=== PATIENT | female | born 1995 | race Two or more races ===

== ENCOUNTER 2020-09-28 20:25 | Emergency (ER) | payer MEDICAID, OTHER ==
[~2020-09-28] VITALS: Ht 162.6 cm; Wt 65.8 kg
[2020-09-28] MEDS ORDERED: ALUM & MAG HYDROX-SIMETH LIQ(MAALOX) 30 ML PO ONE (20:45)
[2020-09-28] MEDS ORDERED: ONDANSETRON ODT 4 MG TAB PO ONE (20:45)
[2020-09-28] MEDS ORDERED: SODIUM CHLORIDE 0.9% 1,000 ML IVB ONE (20:45)
[2020-09-28 21:35] LABS: Basophils # (auto) 0 10 ^3/uL (0-0.2); Basophils % (auto) 0.5 % (0.0-2.0); Eosinophils # (auto) 0 10 ^3/uL (0-0.8); Eosinophils % (auto) 0.5 % (0.0-7.0); Hematocrit 44.2 % (36.0-46.0); Hemoglobin 14.9 g/dL (12.2-16.2); Lymphocytes % (auto) 23.9 % (10.0-50.0); Mean Corpuscular Hemoglobin 29.1 pg (28.0-32.0); Mean Corpuscular Hgb Conc. 33.7 g/dL (32.0-36.0); Mean Corpuscular Volume 86.4 fL (80.0-100.0); Monocytes # (auto) 0.5 10 ^3/uL (0-1.3); Monocytes % (auto) 5.5 % (0.0-12.0); Neutrophils # (auto) 5.8 10 ^3/uL (1.6-8.6); Neutrophils % (auto) 69.6 % (37.0-80.0); Platelet Count (auto) 207 10^3/uL (140-450); Red Blood Cells 5.12 10^6/uL (4.0-5.20); Red Cell Distribution Width 13.2 % (11.8-14.3); White Blood Cell 8.3 10^3/uL (4.4-10.8)
[2020-09-28 21:48] LABS: Albumin 4.1 g/dL (3.4-5.0); BUN/Creatinine Ratio 10.7; Potassium 3.4 mmol/L (3.5-5.1)
[2020-09-28 21:51] LABS: Bilirubin, Total 0.7 mg/dL (0.2-1.0); Total Protein 9.1 g/dL (6.4-8.2)
[2020-09-28 23:43] LABS: Urine Bacteria FEW /hpf (None Seen); Urine Blood Negative /uL (Negative); Urine Mucus FEW (None Seen); Urine Specific Gravity 1.031 (1.001-1.035); Urine WBC 6 /hpf (0 - 5)
[2020-09-29] MEDS ORDERED: cefTRIAXone 1GM/50ML D5W 50 ML IV ONE (00:15)
[2020-09-29 01:00] VITALS: BP 109/64
== END 2020-09-29 01:30 | disposition home or self-care (01) ==
LOC: ER 20:26
DX: O21.0 Mild hyperemesis gravidarum (principal); O99.611 Diseases of the digestive system complicating pregnancy, first trimester; K29.70 Gastritis, unspecified, without bleeding; Z3A.08 8 weeks gestation of pregnancy
CPT/HCPCS: 36415; 80053; 81001; 82150; 83690; 83735; 84702; 85025; 96361; 96365; 99284; J0696; J7030; Q0162

== ENCOUNTER 2021-05-17 23:28 | Inpatient (IN) | payer MEDICAID ==
[~2021-05-17] VITALS: Ht 162.6 cm; Wt 80.7 kg
[2021-05-18] VITALS (27 sets, daily range): BP systolic 127–150; BP diastolic 75–112
[2021-05-18] MEDS ORDERED: LABETALOL HCL 5 MG/ML 4ML SYRINGE IV PRN ×3 (00:15→00:45)
[2021-05-18] MEDS ORDERED: ceFAZolin 1GM/50ML 50 ML IV ONE ×2 (00:30→03:15)
[2021-05-18] MEDS ORDERED: LORazepam 2MG/ML-1ML VIAL IV PRN (00:30)
[2021-05-18] MEDS ORDERED: TERBUTALINE SULFATE 1 MG/ML 1ML VIAL SC ONE (00:51)
[2021-05-18] MEDS: LACTATED RINGER'S 1,000 ML IV SCH ×3 (00:58→18:33)
[2021-05-18] MEDS: MAGNESIUM SULFATE 40MG/ML 1,000 ML IV SCH ×2 (00:59→18:35)
[2021-05-18 01:31] LABS: Hemoglobin 11.2 g/dL (12.2-16.2)
[2021-05-18 01:32] LABS: Basophils # (auto) 0 10 ^3/uL (0-0.2); Basophils % (auto) 0.1 % (0.0-2.0); Eosinophils # (auto) 0.1 10 ^3/uL (0-0.8); Eosinophils % (auto) 0.5 % (0.0-7.0); Hematocrit 34.4 % (36.0-46.0); Lymphocytes # (auto) 2.7 10 ^3/uL (0.4-5.4); Lymphocytes % (auto) 19.9 % (10.0-50.0); Mean Corpuscular Hemoglobin 25.8 pg (28.0-32.0); Mean Corpuscular Hgb Conc. 32.5 g/dL (32.0-36.0); Mean Corpuscular Volume 79.2 fL (80.0-100.0); Monocytes # (auto) 0.7 10 ^3/uL (0-1.3); Monocytes % (auto) 4.9 % (0.0-12.0); Neutrophils # (auto) 10.2 10 ^3/uL (1.6-8.6); Neutrophils % (auto) 74.6 % (37.0-80.0); Red Blood Cells 4.34 10^6/uL (4.0-5.20); White Blood Cell 13.7 10^3/uL (4.4-10.8)
[2021-05-18] MEDS ORDERED: FAMOTIDINE (10MG/ML) 2ML VL IV ONE (01:41)
[2021-05-18] MEDS ORDERED: TRANEXAMIC ACID 20 ML ONE (01:41)
[2021-05-18] MEDS ORDERED: BUPIVACAINE 0.5% P/F INJ 10 ML VIAL ONE (01:41)
[2021-05-18] MEDS ORDERED: fentaNYL CITRATE 100 MCG/2 ML VL ONE (01:42)
[2021-05-18] MEDS ORDERED: ONDANSETRON HCL 4 MG/2 ML VIAL ONE (01:43)
[2021-05-18] MEDS ORDERED: MORPHINE SULF PF 2 MG/2 ML SYRG ONE (01:43)
[2021-05-18] MEDS ORDERED: GLYCOPYRROLATE 0.2 MG/ML 1ML VIAL ONE (01:43)
[2021-05-18] MEDS ORDERED: oxyTOCIN 10 UNIT/ML 10ML VIAL ONE (01:43)
[2021-05-18 01:44] LABS: Urine Bacteria FEW /hpf (None Seen); Urine Blood Negative /uL (Negative); Urine Hyaline Cast FEW /lpf (0 - 2); Urine Mucus FEW (None Seen); Urine Specific Gravity 1.021 (1.001-1.035); Urine WBC 3 /hpf (0 - 5)
[2021-05-18] MEDS ORDERED: ePHEDrine SULFATE 50 MG/ML AMP ONE (01:44)
[2021-05-18] MEDS ORDERED: TRANEXAMIC ACID 1,000 MG in SODIUM CHL 0.9% 100 ML IV ONE (01:45)
[2021-05-18 01:49] LABS: INR 0.93 (0.9-1.15); Partial Thromboplastin Time 25.9 sec (23.6-33.0)
[2021-05-18 01:51] LABS: Albumin 2.6 g/dL (3.4-5.0); Uric Acid 4.3 mg/dL (2.6-6.0)
[2021-05-18 01:54] LABS: BUN/Creatinine Ratio 18.9; Bilirubin, Total 0.4 mg/dL (0.2-1.0)
[2021-05-18 01:54] LABS: Amphetamine Screen, Urine NEGATIVE (NEGATIVE); Barbiturate Scree,Urine NEGATIVE (NEGATIVE); Benzodiazephine Screen, Urine NEGATIVE (NEGATIVE); Cannabinoid Screen, Urine NEGATIVE (NEGATIVE); Cocaine Screen, Urine NEGATIVE (NEGATIVE); Opiate Scree,Urine NEGATIVE (NEGATIVE); Phencyclidine Screen, Urine NEGATIVE (NEGATIVE)
[2021-05-18] MEDS ORDERED: MIDAZOLAM HCL 2MG/2ML 2ml VIAL (1mg/ml) ONE (02:05)
[2021-05-18 02:11] LABS: Protein, Urine 206.4 mg/dL (0.0-11.9)
[2021-05-18] MEDS ORDERED: MEPERIDINE HCL (25 MG/ML) 1ML VIAL ONE (02:44)
[2021-05-18] MEDS ORDERED: KETOROLAC TROMETH 30 MG/ML 1ML VIAL IV ONE (03:15)
[2021-05-18] MEDS ORDERED: KETOROLAC TROMETH 30 MG/ML 1ML VIAL IV PRN ×2 (03:15)
[2021-05-18] MEDS ORDERED: NALOXONE HCL 0.4 MG/ML VIAL IV PRN (03:15)
[2021-05-18] MEDS ORDERED: diphenhdrAMINE HCL 50 MG/1 ML VL IV PRN (03:15)
[2021-05-18] MEDS ORDERED: ONDANSETRON HCL 4 MG/2 ML VIAL IV PRN ×3 (03:15)
[2021-05-18] MEDS ORDERED: MORPHINE SULFATE 4 MG/ML SYR/VIAL IV PRN (03:15)
[2021-05-18] MEDS ORDERED: ePHEDrine SULFATE 50 MG/ML AMP IV PRN (03:15)
[2021-05-18] MEDS ORDERED: GUM (CHEWING) 1 GUM CHEW CHEW ONE (03:15)
[2021-05-18] MEDS ORDERED: DexAMETHasone SOD PHOS 10MG/1ML VIAL INJ IV PRN (03:15)
[2021-05-18] MEDS ORDERED: LACTATED RINGER'S 1,000 ML IV SCH (06:45)
[2021-05-18 10:33] LABS: Basophils # (auto) 0 10 ^3/uL (0-0.2); Basophils % (auto) 0.1 % (0.0-2.0); Eosinophils # (auto) 0 10 ^3/uL (0-0.8); Hematocrit 31.7 % (36.0-46.0); Hemoglobin 10.4 g/dL (12.2-16.2); Lymphocytes # (auto) 1.3 10 ^3/uL (0.4-5.4); Lymphocytes % (auto) 6.8 % (10.0-50.0); Mean Corpuscular Hemoglobin 26.2 pg (28.0-32.0); Mean Corpuscular Volume 79.4 fL (80.0-100.0); Monocytes # (auto) 0.7 10 ^3/uL (0-1.3); Neutrophils # (auto) 16.5 10 ^3/uL (1.6-8.6); Neutrophils % (auto) 89.1 % (37.0-80.0); Red Blood Cells 3.99 10^6/uL (4.0-5.20); Red Cell Distribution Width 16.4 % (11.8-14.3); White Blood Cell 18.5 10^3/uL (4.4-10.8)
[2021-05-18] MEDS: DOCUSATE SOD 100 MG CAP PO SCH (22:35)
[2021-05-19] VITALS (7 sets, daily range): BP systolic 129–155; BP diastolic 74–96
[2021-05-19] MEDS: LACTATED RINGER'S 1,000 ML IV SCH (04:18)
[2021-05-19] MEDS: IBUPROFEN 600 MG TAB PO SCH ×3 (06:53→19:37)
[2021-05-19 07:07] LABS: RPR Non Reactive (Non Reactive)
[2021-05-19] MEDS: HYDROcodone-ACET 5/325MG TAB PO PRN ×2 (08:24→17:41)
[2021-05-19] MEDS ORDERED: LABETALOL HCL 200 MG TAB PO SCH ×2 (10:00→22:00)
[2021-05-19] MEDS: LABETALOL HCL 200 MG TAB PO SCH (19:40)
[2021-05-19] MEDS: DOCUSATE SOD 100 MG CAP PO SCH (22:59)
[2021-05-20 03:15] VITALS: BP 148/84
[2021-05-20] MEDS: HYDROcodone-ACET 5/325MG TAB PO PRN ×2 (04:20→12:47)
[2021-05-20 07:25] VITALS: BP 142/94
[2021-05-20] MEDS: IBUPROFEN 600 MG TAB PO SCH ×4 (08:23→17:32)
[2021-05-20] MEDS: LABETALOL HCL 200 MG TAB PO SCH ×2 (08:25→20:07)
[2021-05-20] MEDS ORDERED: PREN-96 PO (08:32)
[2021-05-20 12:30] VITALS: BP 147/87
[2021-05-20 15:00] VITALS: BP 147/79
[2021-05-20 19:00] VITALS: BP 139/91
[2021-05-20] MEDS ORDERED: BISACODYL 10 MG RECT SUPP PR PRN (19:15)
[2021-05-20] MEDS: DOCUSATE SOD 100 MG CAP PO SCH (22:21)
[2021-05-20 23:14] VITALS: BP 142/96
[2021-05-21 03:00] VITALS: BP 152/86
[2021-05-21] MEDS: HYDROcodone-ACET 5/325MG TAB PO PRN ×2 (04:27→10:31)
[2021-05-21] MEDS: IBUPROFEN 600 MG TAB PO SCH ×4 (05:45→18:25)
[2021-05-21] MEDS: SIMETHICONE 80 MG CHEWABLE TABLET PO PRN ×3 (05:46→17:45)
[2021-05-21 07:00] VITALS: BP 143/92
[2021-05-21] MEDS: LABETALOL HCL 200 MG TAB PO SCH ×2 (08:09→19:14)
[2021-05-21 10:30] VITALS: BP 150/86
[2021-05-21 11:38] LABS: Basophils # (auto) 0 10 ^3/uL (0-0.2); Eosinophils # (auto) 0.3 10 ^3/uL (0-0.8); Hemoglobin 9.5 g/dL (12.2-16.2); Lymphocytes # (auto) 2.1 10 ^3/uL (0.4-5.4); Neutrophils # (auto) 6.5 10 ^3/uL (1.6-8.6)
[2021-05-21 11:41] LABS: Basophils % (auto) 0.4 % (0.0-2.0); Eosinophils % (auto) 2.9 % (0.0-7.0); Mean Corpuscular Hemoglobin 25.9 pg (28.0-32.0); Mean Corpuscular Hgb Conc. 32.8 g/dL (32.0-36.0); Mean Corpuscular Volume 79.1 fL (80.0-100.0); Monocytes # (auto) 0.5 10 ^3/uL (0-1.3); Monocytes % (auto) 5.4 % (0.0-12.0); Neutrophils % (auto) 69.3 % (37.0-80.0); Red Blood Cells 3.67 10^6/uL (4.0-5.20); Red Cell Distribution Width 17.2 % (11.8-14.3); White Blood Cell 9.4 10^3/uL (4.4-10.8)
[2021-05-21 11:50] LABS: Albumin 2.4 g/dL (3.4-5.0); Calcium 8.2 mg/dL (8.5-10.1); Potassium 4.1 mmol/L (3.5-5.1)
[2021-05-21 11:54] LABS: BUN/Creatinine Ratio 25.5; Bilirubin, Total 0.4 mg/dL (0.2-1.0); Total Protein 6.7 g/dL (6.4-8.2); Uric Acid 5.3 mg/dL (2.6-6.0)
[2021-05-21 13:26] LABS: Urine Blood 3+ /uL (Negative); Urine Specific Gravity 1.007 (1.001-1.035); Urine WBC 25 /hpf (0 - 5)
[2021-05-21 13:28] LABS: Urine Bacteria FEW /hpf (None Seen)
[2021-05-21 15:00] VITALS: BP 150/90
[2021-05-21 18:30] VITALS: BP 145/91
[2021-05-21] MEDS: DOCUSATE SOD 100 MG CAP PO SCH (22:19)
[2021-05-21 23:00] VITALS: BP 160/90
[2021-05-22] VITALS (17 sets, daily range): BP systolic 118–164; BP diastolic 48–108
[2021-05-22] MEDS: hydrALAZINE HCL 20 MG/ML VL IV PRN ×2 (04:11→04:42)
[2021-05-22] MEDS: HYDROcodone-ACET 5/325MG TAB PO PRN (05:07)
[2021-05-22 06:40] LABS: Basophils # (auto) 0 10 ^3/uL (0-0.2); Basophils % (auto) 0.2 % (0.0-2.0); Eosinophils # (auto) 0.4 10 ^3/uL (0-0.8); Lymphocytes # (auto) 1.9 10 ^3/uL (0.4-5.4); Monocytes # (auto) 0.6 10 ^3/uL (0-1.3)
[2021-05-22 06:42] LABS: Eosinophils % (auto) 3.5 % (0.0-7.0); Hematocrit 31.5 % (36.0-46.0); Hemoglobin 10.4 g/dL (12.2-16.2); Lymphocytes % (auto) 18.4 % (10.0-50.0); Mean Corpuscular Hemoglobin 25.9 pg (28.0-32.0); Mean Corpuscular Hgb Conc. 32.9 g/dL (32.0-36.0); Mean Corpuscular Volume 78.6 fL (80.0-100.0); Monocytes % (auto) 5.8 % (0.0-12.0); Neutrophils # (auto) 7.6 10 ^3/uL (1.6-8.6); Neutrophils % (auto) 72.1 % (37.0-80.0); Nucleated Red Blood Cells % 0.1 %; Red Cell Distribution Width 17.1 % (11.8-14.3); White Blood Cell 10.5 10^3/uL (4.4-10.8)
[2021-05-22 06:52] LABS: Potassium 4.1 mmol/L (3.5-5.1)
[2021-05-22 06:54] LABS: INR 0.97 (0.9-1.15); Partial Thromboplastin Time 25.1 sec (23.6-33.0)
[2021-05-22 07:03] LABS: Albumin 2.7 g/dL (3.4-5.0); Bilirubin, Total 0.4 mg/dL (0.2-1.0); Calcium 8.7 mg/dL (8.5-10.1); Total Protein 7.5 g/dL (6.4-8.2); Uric Acid 5.3 mg/dL (2.6-6.0)
[2021-05-22] MEDS: IBUPROFEN 600 MG TAB PO SCH ×4 (07:12→18:00)
[2021-05-22] MEDS: LABETALOL HCL 200 MG TAB PO SCH (08:21)
[2021-05-22] MEDS ORDERED: LABETALOL HCL 200 MG TAB PO ONE (12:15)
[2021-05-22] MEDS ORDERED: LABE200T7 PO (15:44)
[2021-05-22] MEDS ORDERED: NIFEdipine 10 MG CAP PO ONE (18:30)
[2021-05-22] MEDS ORDERED: LABETALOL HCL 200 MG TAB PO SCH (21:00)
== END 2021-05-22 20:45 | disposition home or self-care (01) | DRG 540 ==
LOC: LDRP 23:28 → OBSVTOIN 05-18 00:13 → LDRP 05-18 05:17
PROVIDERS: ADMIT Obstetrics & Gynecology Obstetrics; ATTEND Obstetrics & Gynecology Obstetrics
PROC: 10D00Z1 Extraction of Products of Conception, Low, Open Approach (ICD-10-PCS; principal; 2021-05-18 01:55)
DX: O14.94 Unspecified pre-eclampsia, complicating childbirth (principal); O34.211 Maternal care for low transverse scar from previous cesarean delivery; O48.0 Post-term pregnancy; Z20.822 Contact with and (suspected) exposure to COVID-19; Z37.0 Single live birth; Z3A.40 40 weeks gestation of pregnancy; Z91.09 Other allergy status, other than to drugs and biological substances
CPT/HCPCS: 36415; 59025; 80053; 80307; 81001; 81002; 82570; 83615; 83735; 84156; 84550; 85025; 85362; 85379; 85384; 85610; 85730; 86592; 86703; 86762; 86765; 86850; 86900; 86901; 87340; 87426; 94760; 94762; 96360; 96361; 96365; 96366; 96372; 96374; G0378; J0690; J1885; J2250; J2405; J2590; J3490

== ENCOUNTER 2023-03-05 11:44 | Emergency (ER) | payer MEDICAID ==
[~2023-03-05] VITALS: Ht 165.1 cm; Wt 73.5 kg
[~2023-03-05 11:44] MED LIST: LABE200T7 PO; PREN-96 PO
[2023-03-05 12:42] LABS: Urine Bacteria MANY /hpf (None Seen); Urine Blood 2+ /uL (Negative); Urine Clarity CLOUDY (Clear); Urine Color Yellow (Yellow); Urine Mucus FEW (None Seen); Urine Protein, UAD 2+ (Negative); Urine Specific Gravity 1.024 (1.001-1.035); Urine Urobilinogen Normal (Negative); Urine WBC 893 /hpf (0 - 5); Urine WBC Clumps PRESENT /hpf (None Seen); Urine pH 5.5 (5.0-8.0)
[2023-03-05] MEDS ORDERED: PROMETHAZINE HCL 25 MG/ML 1ML IM ONE (12:45)
[2023-03-05 12:46] LABS: Basophils # (auto) 0.4 10 ^3/uL (0-0.2); Basophils % (auto) 3.6 % (0.0-2.0); Eosinophils # (auto) 0.1 10 ^3/uL (0-0.8); Eosinophils % (auto) 0.5 % (0.0-7.0); Hematocrit 41.6 % (36.0-46.0); Hemoglobin 13.8 g/dL (12.2-16.2); Lymphocytes # (auto) 1.1 10 ^3/uL (0.4-5.4); Lymphocytes % (auto) 10.7 % (10.0-50.0); Mean Corpuscular Hemoglobin 28.1 pg (28.0-32.0); Mean Corpuscular Hgb Conc. 33.2 g/dL (32.0-36.0); Mean Corpuscular Volume 84.6 fL (80.0-100.0); Monocytes # (auto) 0.4 10 ^3/uL (0-1.3); Monocytes % (auto) 3.8 % (0.0-12.0); Neutrophils # (auto) 8.5 10 ^3/uL (1.6-8.6); Neutrophils % (auto) 81.4 % (37.0-80.0); Nucleated Red Blood Cells % 0.1 %; Red Blood Cells 4.92 10^6/uL (4.0-5.20); Red Cell Distribution Width 13.7 % (11.8-14.3); White Blood Cell 10.5 10^3/uL (4.4-10.8)
[2023-03-05 13:11] LABS: Albumin 3.8 g/dL (3.4-5.0); Calcium 8.8 mg/dL (8.5-10.1); Potassium 4.1 mmol/L (3.5-5.1)
[2023-03-05 13:14] LABS: BUN/Creatinine Ratio 17.2 (10.0-20.0); Bilirubin, Total 0.5 mg/dL (0.2-1.0); Total Protein 7.9 g/dL (6.4-8.2)
[2023-03-05] MEDS ORDERED: CEPH250C PO (14:19)
[2023-03-05 14:31] VITALS: BP 122/74; PULSE 79; RESP 20; TEMP 98; O2SAT 99
== END 2023-03-05 14:32 | disposition home or self-care (01) ==
LOC: ER 11:44
DX: O21.0 Mild hyperemesis gravidarum (principal); R10.2 Pelvic and perineal pain; O23.41 Unspecified infection of urinary tract in pregnancy, first trimester; N39.0 Urinary tract infection, site not specified; M54.2 Cervicalgia; Z3A.10 10 weeks gestation of pregnancy
CPT/HCPCS: 36415; 76801; 80053; 81001; 84702; 85025; 96372; 99285; J2550

== ENCOUNTER 2023-04-20 17:17 | Emergency (ER) | payer MEDICAID ==
[~2023-04-20 17:17] MED LIST changes: +CEPH250C PO
== END 2023-04-20 17:58 | disposition left against medical advice (07) ==
LOC: ER 17:17
DX: M54.9 Dorsalgia, unspecified (principal); Z53.21 Procedure and treatment not carried out due to patient leaving prior to being seen by health care provider

== ENCOUNTER 2023-05-09 19:56 | Observation (INO) | payer MEDICAID ==
[~2023-05-09] VITALS: Ht 162.6 cm; Wt 78.5 kg
== END 2023-05-09 21:27 | disposition home or self-care (01) ==
LOC: LDRP 19:56
PROVIDERS: ADMIT Obstetrics & Gynecology; ATTEND Obstetrics & Gynecology
DX: O26.892 Other specified pregnancy related conditions, second trimester (principal); R19.7 Diarrhea, unspecified; R10.9 Unspecified abdominal pain; Z3A.20 20 weeks gestation of pregnancy
CPT/HCPCS: 59025; 94760; G0378

== ENCOUNTER 2023-08-19 02:16 | Observation (INO) | payer MEDICAID ==
[~2023-08-19] VITALS: Ht 165.1 cm; Wt 88.0 kg
[~2023-08-19 02:16] MED LIST changes: -CEPH250C PO
[2023-08-19] MEDS ORDERED: ACETAMINOPHEN 650 mg PER 20.3 mL UD PO ONE (03:45)
[2023-08-19] MEDS ORDERED: ACETAMINOPHEN 500 MG TAB PO ONE ×2 (03:51→04:00)
== END 2023-08-19 05:20 | disposition home or self-care (01) ==
LOC: LDRP 02:16
PROVIDERS: ADMIT Obstetrics & Gynecology; ATTEND Obstetrics & Gynecology
DX: O99.353 Diseases of the nervous system complicating pregnancy, third trimester (principal); O26.893 Other specified pregnancy related conditions, third trimester; G43.909 Migraine, unspecified, not intractable, without status migrainosus; R10.30 Lower abdominal pain, unspecified; Z91.02 Food additives allergy status; Z3A.34 34 weeks gestation of pregnancy
CPT/HCPCS: 59025; 81002; 94760; G0378

== ENCOUNTER 2023-09-01 10:40 | Observation (INO) | payer MEDICAID ==
[2023-09-01 11:22] LABS: Basophils # (auto) 0 10 ^3/uL (0-0.2); Basophils % (auto) 0.2 % (0.0-2.0); Eosinophils # (auto) 0.1 10 ^3/uL (0-0.8); Eosinophils % (auto) 0.8 % (0.0-7.0); Hematocrit 38.1 % (36.0-46.0); Hemoglobin 12.4 g/dL (12.2-16.2); Lymphocytes # (auto) 2.9 10 ^3/uL (0.4-5.4); Lymphocytes % (auto) 26.1 % (10.0-50.0); Mean Corpuscular Hgb Conc. 32.4 g/dL (32.0-36.0); Mean Corpuscular Volume 83.4 fL (80.0-100.0); Monocytes # (auto) 0.7 10 ^3/uL (0-1.3); Monocytes % (auto) 6.1 % (0.0-12.0); Neutrophils # (auto) 7.3 10 ^3/uL (1.6-8.6); Neutrophils % (auto) 66.8 % (37.0-80.0); Nucleated Red Blood Cells % 0.1 %; Red Blood Cells 4.57 10^6/uL (4.0-5.20); Red Cell Distribution Width 13.9 % (11.8-14.3); White Blood Cell 10.9 10^3/uL (4.4-10.8)
[2023-09-01 11:29] LABS: Urine Bacteria MOD /hpf (None Seen); Urine Blood Negative /uL (Negative); Urine Clarity HAZY (Clear); Urine Color Yellow (Yellow); Urine Mucus FEW (None Seen); Urine Protein, UAD TRACE (Negative); Urine Specific Gravity 1.018 (1.001-1.035); Urine Urobilinogen Normal (Negative); Urine WBC 8 /hpf (0 - 5)
[2023-09-01 11:34] LABS: Protein, Urine 16.5 mg/dL (0.0-11.9)
[2023-09-01 11:37] LABS: Amphetamine Screen, Urine Neg (NEGATIVE); Creatinine, Urine 105.29 mg/dL (30.0-125.0); Urine Protein/Creatinine Ratio 0.16
[2023-09-01 11:39] LABS: Barbiturate Scree,Urine Neg (NEGATIVE)
[2023-09-01 11:40] LABS: Benzodiazephine Screen, Urine Neg (NEGATIVE); Cannabinoid Screen, Urine Neg (NEGATIVE); Cocaine Screen, Urine Neg (NEGATIVE); Opiate Scree,Urine Neg (NEGATIVE); Phencyclidine Screen, Urine Neg (NEGATIVE)
[2023-09-01 11:41] LABS: Albumin 3.8 g/dL (3.2-4.8); Alkaline Phosphatase 116 U/L (46-116); Anion Gap 7 (5-15); Aspartate Aminotransferase 13 U/L (13-40); Bilirubin, Total 0.4 mg/dL (0.2-1.0); Calcium 8.6 mg/dL (8.7-10.4); Carbon Dioxide 22 mmol/L (20-30); Chloride 108 mmol/L (98-107); Glucose 78 mg/dL (74-106); Potassium 4.2 mmol/L (3.5-5.1); Sodium 137 mmol/L (136-145); Total Protein 7.1 g/dL (5.7-8.2); Uric Acid 4.4 mg/dL (3.1-7.8)
[2023-09-01 11:49] LABS: Alanine Aminotransferase < 9 U/L (7-40); BUN/Creatinine Ratio 9.6 (10.0-20.0); Blood Urea Nitrogen < 5 mg/dL (9-23)
[2023-09-01 11:51] LABS: INR 0.92 (0.9-1.15); Partial Thromboplastin Time 27.9 SEC (24.5-34.5); Prothrombin Time 9.7 sec (9.3-11.8)
[2023-09-02 08:06] LABS: RPR Non Reactive (Non Reactive)
[2023-09-02] MEDS ORDERED: LABE100T4 PO (13:32)
[2023-09-05 19:06] LABS: Treponema pallidum Ab (FTA-Ab) Non Reactive (Non Reactive)
== END 2023-09-01 12:45 | disposition home or self-care (01) ==
LOC: LDRP 10:40
PROVIDERS: ADMIT Obstetrics & Gynecology; ATTEND Obstetrics & Gynecology
DX: O13.3 Gestational [pregnancy-induced] hypertension without significant proteinuria, third trimester (principal); Z3A.36 36 weeks gestation of pregnancy; Z91.018 Allergy to other foods; Z79.899 Other long term (current) drug therapy
CPT/HCPCS: 36415; 59025; 76818; 80053; 80307; 81001; 81002; 82570; 84156; 84550; 85025; 85610; 85730; 86592; 86850; 86900; 86901; 94760; G0378

== ENCOUNTER 2023-09-02 09:18 | Observation (INO) | payer MEDICAID ==
[~2023-09-02] VITALS: Ht 165.1 cm; Wt 83.9 kg
[2023-09-02] MEDS ORDERED: LABETALOL HCL 200 MG TAB PO ONE (11:45)
[2023-09-02] MEDS ORDERED: LABE100T4 PO (13:32)
== END 2023-09-02 14:07 | disposition home or self-care (01) ==
LOC: LDRP 09:18
PROVIDERS: ADMIT Obstetrics & Gynecology; ATTEND Obstetrics & Gynecology
DX: O13.3 Gestational [pregnancy-induced] hypertension without significant proteinuria, third trimester (principal); Z3A.36 36 weeks gestation of pregnancy
CPT/HCPCS: 59025; 81002; 94760; G0378

== ENCOUNTER 2023-09-04 09:04 | Observation (INO) | payer MEDICAID ==
[~2023-09-04 09:04] MED LIST changes: +LABE100T4 PO
[2023-09-04 11:05] LABS: Protein, Urine 32.1 mg/dL (0.0-11.9)
[2023-09-04 11:08] LABS: Creatinine, Urine 126.6 mg/dL (30.0-125.0); Urine Protein/Creatinine Ratio 0.25
[2023-09-04 11:26] LABS: 24 Hr. Total Protein, Urine 304.9 mg/24 Hr (<149.1)
== END 2023-09-04 11:52 | disposition home or self-care (01) ==
LOC: LDRP 09:04 → UNDOADMOB 09:04 → LDRP 09:19 → UNDODISOB 11:52
PROVIDERS: ADMIT Obstetrics & Gynecology; ATTEND Obstetrics & Gynecology
DX: O13.3 Gestational [pregnancy-induced] hypertension without significant proteinuria, third trimester (principal); Z3A.36 36 weeks gestation of pregnancy; Z91.018 Allergy to other foods
CPT/HCPCS: 59025; 76818; 81002; 82570; 84156; 94760; G0378

== ENCOUNTER 2023-09-07 09:08 | Observation (INO) | payer MEDICAID ==
[2023-09-07 11:31] LABS: Basophils # (auto) 0 10 ^3/uL (0-0.2); Basophils % (auto) 0.1 % (0.0-2.0); Eosinophils # (auto) 0.1 10 ^3/uL (0-0.8); Hemoglobin 11.8 g/dL (12.2-16.2); Monocytes # (auto) 0.6 10 ^3/uL (0-1.3); White Blood Cell 10.2 10^3/uL (4.4-10.8)
[2023-09-07 11:32] LABS: Eosinophils % (auto) 0.9 % (0.0-7.0); Hematocrit 35.9 % (36.0-46.0); Lymphocytes # (auto) 2.5 10 ^3/uL (0.4-5.4); Lymphocytes % (auto) 24.9 % (10.0-50.0); Mean Corpuscular Hemoglobin 27.1 pg (28.0-32.0); Mean Corpuscular Volume 82.3 fL (80.0-100.0); Monocytes % (auto) 6.2 % (0.0-12.0); Neutrophils # (auto) 6.9 10 ^3/uL (1.6-8.6); Neutrophils % (auto) 67.9 % (37.0-80.0); Nucleated Red Blood Cells % 0.1 %; Red Blood Cells 4.36 10^6/uL (4.0-5.20); Red Cell Distribution Width 14.1 % (11.8-14.3)
[2023-09-07 11:43] LABS: Urine Bacteria FEW /hpf (None Seen); Urine Blood Negative /uL (Negative); Urine Clarity HAZY (Clear); Urine Color Yellow (Yellow); Urine Mucus FEW (None Seen); Urine Protein, UAD TRACE (Negative); Urine Specific Gravity 1.026 (1.001-1.035); Urine Urobilinogen Normal (Negative); Urine WBC 10 /hpf (0 - 5)
[2023-09-07 11:51] LABS: INR 0.93 (0.9-1.15); Partial Thromboplastin Time 24.8 SEC (24.5-34.5); Prothrombin Time 9.8 sec (9.3-11.8)
[2023-09-07 12:05] LABS: Protein, Urine 29.9 mg/dL (0.0-11.9)
[2023-09-07 12:07] LABS: Creatinine, Urine 115.39 mg/dL (30.0-125.0); Urine Protein/Creatinine Ratio 0.26
[2023-09-07 12:10] LABS: Albumin 3.6 g/dL (3.2-4.8); Alkaline Phosphatase 110 U/L (46-116); Anion Gap 8 (5-15); Aspartate Aminotransferase 14 U/L (13-40); Bilirubin, Total 0.4 mg/dL (0.2-1.0); Blood Urea Nitrogen 9 mg/dL (9-23); Calcium 8.5 mg/dL (8.7-10.4); Carbon Dioxide 19 mmol/L (20-30); Chloride 111 mmol/L (98-107); Glucose 90 mg/dL (74-106); Potassium 3.7 mmol/L (3.5-5.1); Sodium 138 mmol/L (136-145); Total Protein 6.6 g/dL (5.7-8.2); Uric Acid 5.1 mg/dL (3.1-7.8)
[2023-09-07 12:13] LABS: Alanine Aminotransferase 9 U/L (7-40)
[2023-09-07] MEDS ORDERED: LABE200T6 PO (12:35)
== END 2023-09-07 12:50 | disposition home or self-care (01) ==
LOC: LDRP 09:08 → UNDOADMOB 09:08 → LDRP 09:20 → UNDODISOB 12:50
PROVIDERS: ADMIT Obstetrics & Gynecology; ATTEND Obstetrics & Gynecology
DX: O13.3 Gestational [pregnancy-induced] hypertension without significant proteinuria, third trimester (principal); Z3A.37 37 weeks gestation of pregnancy; Z91.018 Allergy to other foods
CPT/HCPCS: 36415; 59025; 76818; 80053; 81001; 81002; 82570; 84156; 84550; 85025; 85610; 85730; 94760; G0378

== ENCOUNTER 2023-09-19 14:13 | Observation (INO) | payer MEDICAID ==
[~2023-09-19] VITALS: Ht 165.1 cm; Wt 89.8 kg
[~2023-09-19 14:13] MED LIST changes: -LABE100T4 PO; +LABE200T6 PO
[2023-09-19] MEDS: LABETALOL HCL 200 MG TAB PO ONE (17:05)
[2023-09-20] MEDS ORDERED: DOCU-94 PO (07:06)
[2023-09-20] MEDS ORDERED: IBUP-1456 PO (07:06)
[2023-09-20] MEDS ORDERED: HYDR-4902 PO (07:06)
== END 2023-09-19 17:32 | disposition home or self-care (01) ==
LOC: LDRP 14:13 → UNDOADMOB 14:13 → LDRP 14:42
PROVIDERS: ADMIT Obstetrics & Gynecology; ATTEND Obstetrics & Gynecology
DX: O13.3 Gestational [pregnancy-induced] hypertension without significant proteinuria, third trimester (principal); Z3A.38 38 weeks gestation of pregnancy
CPT/HCPCS: 59025; 76818; 81002; 94760; G0378

== ENCOUNTER 2023-09-20 04:04 | Inpatient (IN) | payer MEDICAID ==
[2023-09-19 15:40] LABS: Urine Bacteria FEW /hpf (None Seen); Urine Blood Negative /uL (Negative); Urine Clarity HAZY (Clear); Urine Color Yellow (Yellow); Urine Mucus FEW (None Seen); Urine Protein, UAD TRACE (Negative); Urine Specific Gravity 1.023 (1.001-1.035); Urine Urobilinogen Normal (Negative); Urine WBC 11 /hpf (0 - 5); Urine pH 6.5 (5.0-8.0)
[2023-09-19 16:01] LABS: Protein, Urine 21.5 mg/dL (0.0-11.9)
[2023-09-19 16:03] LABS: Creatinine, Urine 135.44 mg/dL (30.0-125.0); Urine Protein/Creatinine Ratio 0.16
[2023-09-19 16:17] LABS: Basophils # (auto) 0 10 ^3/uL (0-0.2); Basophils % (auto) 0.3 % (0.0-2.0); Eosinophils # (auto) 0 10 ^3/uL (0-0.8); Eosinophils % (auto) 0.4 % (0.0-7.0); Hemoglobin 12.2 g/dL (12.2-16.2); Lymphocytes # (auto) 2.1 10 ^3/uL (0.4-5.4); Lymphocytes % (auto) 18.5 % (10.0-50.0); Mean Corpuscular Hemoglobin 26.6 pg (28.0-32.0); Mean Corpuscular Hgb Conc. 32.8 g/dL (32.0-36.0); Mean Corpuscular Volume 80.9 fL (80.0-100.0); Monocytes # (auto) 0.5 10 ^3/uL (0-1.3); Monocytes % (auto) 4.8 % (0.0-12.0); Neutrophils # (auto) 8.6 10 ^3/uL (1.6-8.6); Red Blood Cells 4.58 10^6/uL (4.0-5.20); Red Cell Distribution Width 14.2 % (11.8-14.3); White Blood Cell 11.3 10^3/uL (4.4-10.8)
[2023-09-19 16:24] LABS: Amphetamine Screen, Urine Neg (NEGATIVE); Barbiturate Scree,Urine Neg (NEGATIVE); Cocaine Screen, Urine Neg (NEGATIVE)
[2023-09-19 16:25] LABS: Cannabinoid Screen, Urine Neg (NEGATIVE); Opiate Scree,Urine Neg (NEGATIVE); Phencyclidine Screen, Urine Neg (NEGATIVE)
[2023-09-19 16:32] LABS: INR 0.95 (0.9-1.15); Partial Thromboplastin Time 25.1 SEC (24.5-34.5)
[2023-09-19 16:36] LABS: Albumin 3.8 g/dL (3.2-4.8); Alkaline Phosphatase 127 U/L (46-116); Anion Gap 8 (5-15); Aspartate Aminotransferase 11 U/L (13-40); BUN/Creatinine Ratio 12.3 (10.0-20.0); Blood Urea Nitrogen 8 mg/dL (9-23); Calcium 8.6 mg/dL (8.7-10.4); Carbon Dioxide 22 mmol/L (20-30); Chloride 108 mmol/L (98-107); Glucose 92 mg/dL (74-106); Potassium 3.8 mmol/L (3.5-5.1); Sodium 138 mmol/L (136-145); Uric Acid 5.2 mg/dL (3.1-7.8)
[2023-09-19 16:37] LABS: Bilirubin, Total 0.6 mg/dL (0.2-1.0); Total Protein 6.9 g/dL (5.7-8.2)
[2023-09-19 16:37] LABS: Benzodiazephine Screen, Urine Neg (NEGATIVE)
[2023-09-19 16:44] LABS: Alanine Aminotransferase < 9 U/L (7-40)
[~2023-09-20] VITALS: Ht 165.1 cm; Wt 89.8 kg
[2023-09-20] VITALS (18 sets, daily range): BP systolic 129–143; BP diastolic 62–98; PULSE 77–96; RESP 13–18; TEMP 97.9–98.4; O2SAT 94–98
[~2023-09-20 04:04] MED LIST changes: -LABE200T6 PO
[2023-09-20] MEDS ORDERED: ceFAZolin 1GM/50ML 50 ML IV ONE (04:15)
[2023-09-20] MEDS: METOCLOPRAMIDE HCL 5MG/ml INJ 2ml VIAL IV ONE (04:30)
[2023-09-20] MEDS: SODIUM CITR/CITRIC ACID ORAL SOLN 30 ML PO ONE (04:30)
[2023-09-20] MEDS: LABETALOL HCL 200 MG TAB PO ONE (05:23)
[2023-09-20] MEDS: LACTATED RINGER'S 1,000 ML IV SCH (05:35)
[2023-09-20] MEDS: LACTATED RINGER'S 1,000 ML IV ONE (05:35)
[2023-09-20] MEDS ORDERED: HYDROmorphone HCL 2 MG/ML VL/or syr IV PRN ×2 (06:15)
[2023-09-20] MEDS ORDERED: MORPHINE SULFATE INJ 2 MG/ml SYRG IV PRN (06:15)
[2023-09-20] MEDS ORDERED: METOCLOPRAMIDE HCL 5MG/ml INJ 2ml VIAL IV PRN (06:15)
[2023-09-20] MEDS: TETRACAINE 1% INJ 2 ML VIAL IJ ONE (06:29)
[2023-09-20] MEDS ORDERED: EPINEPHrine HCL 1 MG/1 ML AMP ONE (06:35)
[2023-09-20] MEDS ORDERED: fentaNYL CITRATE 100 MCG/2 ML VL ONE (06:35)
[2023-09-20] MEDS ORDERED: MORPHINE SULF PF 5 MG/10 ML VIAL ONE (06:35)
[2023-09-20] MEDS ORDERED: oxyTOCIN 10 UNIT/ML 10ML VIAL ONE (06:35)
[2023-09-20] MEDS ORDERED: MIDAZOLAM HCL 2MG/2ML 2ml VIAL (1mg/ml) ONE (06:35)
[2023-09-20] MEDS ORDERED: BUPIVACAINE/DEXTROSE MPF 0.75% 2 ML AMP IT ONE (06:35)
[2023-09-20] MEDS ORDERED: SODIUM CHLORIDE LOCK 10 ML ONE (06:35)
[2023-09-20] MEDS ORDERED: ONDANSETRON HCL 4 MG/2 ML VIAL ONE (06:35)
[2023-09-20] MEDS: ceFAZolin 2 GM/D5W50ml 50 ML IV ONE (07:00)
[2023-09-20] MEDS ORDERED: HYDR-4902 PO (07:06)
[2023-09-20] MEDS ORDERED: IBUP-1456 PO (07:06)
[2023-09-20] MEDS ORDERED: DOCU-94 PO (07:06)
[2023-09-20] MEDS: ceFAZolin 1GM/50ML 50 ML IV SCH (07:15)
[2023-09-20] MEDS: GUM (CHEWING) 1 GUM CHEW CHEW ONE (07:15)
[2023-09-20] MEDS: LACT. RINGERS/OXYTOCIN 20UNITS 1,000 ML IV ONE (07:15)
[2023-09-20] MEDS: CARBOPROST TROMETHAMINE 250 MCG/1ML VIAL IM ONE (07:40)
[2023-09-20] MEDS: METHYLERGONOVINE MALEATE 0.2 MG/ML AMP IM ONE (07:41)
[2023-09-20 08:06] LABS: RPR Non Reactive (Non Reactive)
[2023-09-20] MEDS: DIPHENOXYLATE W/ATROPINE 2.5 MG TAB PO ONE (11:11)
[2023-09-20] MEDS: ACETAMINOPHEN IV 1000 MG/100ML (10MG/ML) IV PRN (11:36)
[2023-09-20] MEDS: DIPHENOXYLATE W/ATROPINE 2.5 MG TAB PO PRN (14:30)
[2023-09-20] MEDS: ONDANSETRON HCL 4 MG/2 ML VIAL IV PRN (16:20)
[2023-09-20 21:17] LABS: Basophils # (auto) 0 10 ^3/uL (0-0.2); Eosinophils # (auto) 0 10 ^3/uL (0-0.8); Hematocrit 33.6 % (36.0-46.0); Monocytes # (auto) 0.8 10 ^3/uL (0-1.3); Monocytes % (auto) 4.7 % (0.0-12.0); Neutrophils # (auto) 15.6 10 ^3/uL (1.6-8.6); Red Blood Cells 4.12 10^6/uL (4.0-5.20); White Blood Cell 17.9 10^3/uL (4.4-10.8)
[2023-09-20 21:18] LABS: Basophils % (auto) 0.1 % (0.0-2.0); Hemoglobin 10.8 g/dL (12.2-16.2); Lymphocytes # (auto) 1.5 10 ^3/uL (0.4-5.4); Lymphocytes % (auto) 8.3 % (10.0-50.0); Mean Corpuscular Hemoglobin 26.3 pg (28.0-32.0); Mean Corpuscular Hgb Conc. 32.2 g/dL (32.0-36.0); Mean Corpuscular Volume 81.5 fL (80.0-100.0); Neutrophils % (auto) 86.9 % (37.0-80.0); Red Cell Distribution Width 14.1 % (11.8-14.3)
[2023-09-21] VITALS (15 sets, daily range): BP systolic 110–140; BP diastolic 68–81; PULSE 72–92; RESP 16–18; TEMP 97.7–98.6; O2SAT 95–98
[2023-09-21] MEDS ORDERED: HYDROcodone-ACET 5/325MG TAB PO PRN (06:15)
[2023-09-21 06:43] LABS: Basophils # (auto) 0 10 ^3/uL (0-0.2); Basophils % (auto) 0.1 % (0.0-2.0); Eosinophils # (auto) 0 10 ^3/uL (0-0.8); Hemoglobin 10.2 g/dL (12.2-16.2); White Blood Cell 15.4 10^3/uL (4.4-10.8)
[2023-09-21 06:46] LABS: Hematocrit 30.9 % (36.0-46.0); Lymphocytes # (auto) 2.7 10 ^3/uL (0.4-5.4); Lymphocytes % (auto) 17.6 % (10.0-50.0); Mean Corpuscular Volume 81.9 fL (80.0-100.0); Monocytes # (auto) 1.2 10 ^3/uL (0-1.3); Monocytes % (auto) 7.5 % (0.0-12.0); Neutrophils # (auto) 11.5 10 ^3/uL (1.6-8.6); Neutrophils % (auto) 74.8 % (37.0-80.0); Nucleated Red Blood Cells % 0.1 %; Red Blood Cells 3.77 10^6/uL (4.0-5.20); Red Cell Distribution Width 14.2 % (11.8-14.3)
[2023-09-21] MEDS: ceFAZolin 1GM/50ML 50 ML IV ONE (07:02)
[2023-09-21] MEDS: IBUPROFEN 800 MG TAB PO PRN (07:42)
[2023-09-21] MEDS: DOCUSATE CALCIUM 240 MG CAP PO SCH (10:01)
[2023-09-21] MEDS: DOCUSATE SOD 100 MG CAP PO SCH (10:01)
[2023-09-21] MEDS: SIMETHICONE 80 MG CHEWABLE TABLET PO SCH (12:44)
[2023-09-22 03:00] VITALS: BP 137/80; PULSE 82; RESP 16; TEMP 98.4; O2SAT 99
[2023-09-22 07:00] VITALS: BP 132/75; PULSE 75; RESP 16; TEMP 98.7; O2SAT 98
[2023-09-22] MEDS: HYDROcodone-ACET 5/325MG TAB PO PRN (10:01)
[2023-09-22 11:00] VITALS: BP 144/85; PULSE 88; RESP 16; TEMP 99.2; O2SAT 96
[2023-09-22 15:00] VITALS: BP 138/84; PULSE 85; RESP 16; TEMP 97.3; O2SAT 98
[2023-09-22 19:00] VITALS: BP 130/91; PULSE 85; RESP 16; TEMP 98.8; O2SAT 96
[2023-09-22 19:06] LABS: Treponema pallidum Ab (FTA-Ab) Non Reactive (Non Reactive)
[2023-09-22] MEDS: BISACODYL 10 MG RECT SUPP PR PRN (22:01)
[2023-09-22 22:43] VITALS: BP 144/87; PULSE 70; RESP 17; TEMP 98.1; O2SAT 97
[2023-09-22] MEDS ORDERED: ACETAMINOPHEN IV 1000 MG/100ML (10MG/ML) IV PRN (23:00)
[2023-09-23 03:00] VITALS: BP 138/80; PULSE 79; RESP 16; TEMP 98.2; O2SAT 96
[2023-09-23 07:00] VITALS: BP 140/90; PULSE 71; RESP 16; TEMP 98.1; O2SAT 96
[2023-09-23 07:31] VITALS: BP 143/90; PULSE 79; RESP 16; TEMP 98.2; O2SAT 96
[2023-09-23 07:39] VITALS: BP 162/87; PULSE 103; TEMP 36.8
[2023-09-23] MEDS: MEASLES, MUMPS & RUBELLA VAC(MMRII) 0.5ML SC ONE (08:24)
== END 2023-09-23 09:40 | disposition home or self-care (01) | DRG 540 ==
LOC: LDRP 04:04
PROVIDERS: ADMIT Obstetrics & Gynecology; ATTEND Obstetrics & Gynecology
PROC: 10D00Z1 Extraction of Products of Conception, Low, Open Approach (ICD-10-PCS; principal; 2023-09-20 07:05)
DX: O34.211 Maternal care for low transverse scar from previous cesarean delivery (principal); D62 Acute posthemorrhagic anemia; O13.4 Gestational [pregnancy-induced] hypertension without significant proteinuria, complicating childbirth; O99.892 Other specified diseases and conditions complicating childbirth; N73.6 Female pelvic peritoneal adhesions (postinfective); O90.81 Anemia of the puerperium; O75.89 Other specified complications of labor and delivery; Z37.0 Single live birth; Z3A.38 38 weeks gestation of pregnancy; Z91.148 Patient's other noncompliance with medication regimen for other reason; Z91.018 Allergy to other foods
CPT/HCPCS: 36415; 59025; 80053; 80307; 81001; 82570; 84156; 84550; 85025; 85610; 85730; 86592; 86850; 86900; 86901; 94760; 94762; 96360; 96361; 96366; G0378; J0131; J0171; J2250; J2405; J2590

== ENCOUNTER 2024-01-24 02:38 | Emergency (ER) | payer MEDICAID ==
[~2024-01-24] VITALS: Ht 172.7 cm; Wt 79.4 kg
[~2024-01-24 02:38] MED LIST changes: +DOCU-94 PO; +HYDR-4902 PO; +IBUP-1456 PO; +LABE200T33 PO; -LABE200T7 PO
[2024-01-24 03:21] VITALS: BP 152/101; PULSE 102; RESP 20; TEMP 98.2; O2SAT 99
== END 2024-01-24 02:58 | disposition home or self-care (01) ==
LOC: EDUNIT# 02:38 → ER 02:38
DX: R07.89 Other chest pain (principal); F41.9 Anxiety disorder, unspecified
CPT/HCPCS: 93005

== ENCOUNTER 2024-10-01 17:51 | Emergency (ER) | payer MEDICAID ==
[~2024-10-01] VITALS: Ht 167.6 cm; Wt 80.3 kg
[2024-10-01] MEDS: LORazepam 2MG/ML-1ML VIAL IV ONE (18:15)
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
--- NOTE | 2024-10-01 19:03 | DVH ---
EXAM: CT HEAD WITHOUT CONTRAST INDICATION: headache TECHNIQUE: CT of the head without intravenous contrast. Radiation Dose : 1. Head: CT Dose: CTDI volume is 50.51 mGy. Dose-length product is 708.88 mGy*cm The dose indicators for CT are the volume Computed Tomography (CT) Dose Index (CTDIvol) and the Dose Length Product (DLP), and are measured in units of mGy and mGy-cm, respectively. These indicators are not patient dose, but values generated from the CT scanner acquisition factors. The report includes radiation exposure data for exposures received during this examination. COMPARISON: None FINDINGS: There is no evidence of acute intracranial hemorrhage, extra-axial collection, mass effect, midline s hift, herniation or hydrocephalus. The ventricles, sulci and cisterns are age appropriate. The conde-white differentiation is intact. Patchy periventricular and subcortical white matter hypoattenuation is nonspecific but may be related to small vessel ischemic disease. The visualized paranasal sinuses and mastoid air cells are clear. The surrounding soft tissues and osseous structures are unremarkable. IMPRESSION: 1. No acute intracranial abnormality. Radiation optimization: All CT scans at this facility use at least one of these dose optimization gregory hniques: automated exposure control mA and/or kV adjustment per patient size (includes targeted exam s where dose is matched to clinical indication) or iterative reconstruction.
[2024-10-01] MEDS ORDERED: BUSP5TAB51 PO (19:34)
[2024-10-01 23:58] VITALS: BP 151/88; PULSE 70; RESP 18; TEMP 98; O2SAT 97
== END 2024-10-02 00:02 | disposition home or self-care (01) ==
LOC: EDUNIT# 17:51 → EDBD 17:51 → ER 17:51
DX: F41.9 Anxiety disorder, unspecified (principal); F41.0 Panic disorder [episodic paroxysmal anxiety]; Z98.890 Other specified postprocedural states
CPT/HCPCS: 70450

== ENCOUNTER 2025-05-06 11:52 | Inpatient (IN) | payer MEDICAID ==
[~2025-05-06] VITALS: Ht 165.1 cm; Wt 81.4 kg
[~2025-05-06 11:52] MED LIST changes: +BUSP5TAB51 PO
--- NOTE | 2025-05-06 12:29 | ED.PDOC ---
HPI (NEURO) HPI Comments 30 y/o F, with PMHx of anxiety presents to the ED for CC of syncope. Patient states, she had a near syncopal episode xtoday (05/06/25). Patient relays, that she was recently Dx: with thyroid disease by her PCP and was only instructed to take Vitamin D. Patient reports that since being diagnosed, to have had intermittent heart fluttering which she believes may be in associated with current symptoms. Patient denies all social history. Patient denies chest pain, shortness of breath, dizziness, or loss of consciousness. Chief Complaint: General Weakness Time Seen by MD: 12:20 Primary Care Provider: none Reviewed Notes: Nurses Notes, Medications, Allergies Information Source: Patient Mode of Arrival: Ambulatory Severity: Moderate Dizziness/Weakness Severity: Unable to do activities Headache Severity: None Timing: Days Duration: Since onset Prehospital treatment: None Weakness Location: Generalized Onset: At rest Circumstances: Spontaneous Symptoms: Syncope Before: Normal During: Awake After: Normal Mentation History of: None Modifying factors: Nothing Associated Signs and Symptoms: Palpitations Past Medical History PAST MEDICAL HISTORY: Anxiety 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 CLERK PASSENGER Hx Family History Family History: Reviewed,noncontributory to illness, Family hx of heart orestes, Family hx of HTN Social History Smoker: Non-Smoker Alcohol: Denies ETOH Use Drugs: Denies Drug Use Lives In: Home Constitutional: reports: weakness; denies: chills, diaphoresis, fatigue, fever, malaise, sweats, others EENTM: denies: blurred vision, double vision, ear bleeding, ear discharge, ear drainage, ear pain, ear ringing, eye pain, eye redness, hearing loss, mouth pain, mouth swelling, nasal discharge, nose bleeding, nose congestion, nose p ain, photophobia, tearing, throat pain, throat swelling, voice changes, others Respiratory: denies: cough, hemoptysis, orthopnea, SOB at rest, shortness of breath, SOB with excertion, stridor, wheezing, others Cardiovascular: denies: chest pain, dizzy spells, diaphoresis, Dyspnea on exertion, edema, irregular heart beat, left arm pain, lightheadedness, palpitations, PND, syncope, others Gastrointestinal: denies: abdomen distended, abdominal pain, blood streaked bowels, constipated, diarrhea, dysphagia, difficulty swallowing, hematemesis, melena, nausea, poor appetite, poor fluid intake, rectal bleeding, rectal pain, vomiting, others Genitourinary: denies: abnormal vagina bleeding, burning, dyspareunia, dysuria, flank pain, frequency, hematuria, incontinence, pain, , vagina discharge, urgency, others Neurological: denies: dizziness, fainting, headache, left sided numbness, left sided weakness, numbness, paresthesia, pre-existing deficit, right sided numbness, right sided weakness, seizure, speech problems, tingling, tremors, weakness, others Musculoskeletal: denies: back pain, gout, joint pain, joint swelling, muscle pain, muscle stiffness, neck pain, others Integumetry: denies: bruises, change in color, change in hair/nails, dryness, laceration, lesions, lumps, rash, wounds, others Allergic/Immunocompromised: denies: Difficulty Healing, Frequent Infections, Hives, Itching, others Hematologic/Lymphatic: denies: anemia, blood clots, easy bleeding, easy bruising, swollen glands, others Endocrine: denies: excessive hunger, excessive sweating, excessive thirst, excessive urination, flushing, intolerance to cold, intolerance to heat, unexplained weight gain, unexplained weight loss, others Psychiatric: denies: anxiety, bipolar disorder, depression, hopeless, panic disorder, schizophrenia, sleepless, suicidal, others All Other Systems: Reviewed and Negative Physical Exam General Appearance: No Apparent Distress, Normal HEENT: Normal ENT Inspection, Pharynx Normal Neck: Full Range of Motion, Non-Tender, Normal, Normal Inspection Respiratory: Chest Non-Tender, Lungs Clear, No Accessory Muscle Use, No Respiratory Distress, Normal Breath Sounds Cardiovascular: No Edema, No Murmur, No Gallop, Normal Peripheral Pulses, Regular Rate/Rhythm Breast Exam: Deferred Gastrointestinal: No Organomegaly, Non Tender, No Pulsatile Mass, Normal Bowel Sounds, Soft Genitalia: Deferred Pelvic: Deferred Rectal: Deferred Extremities: No calf tenderness, Normal capillary refill, Normal inspection, Normal range of motion, Non-tender, No pedal edema Musculoskeletal : Apperance: Normal Neurologic: Alert, mosaic tiler II-XII nml as Tested, No Motor Deficits, Normal Affect, Normal Mood, No Sensory Deficits Cerebellar Function: Normal Reflexes: Normal Skin: Dry, Normal Color, Warm Lymphatic: No Adenopathy Was a procedure done? Was a procedure done?: No Differential Diagnosis (SZ) General Weakness: Anemia, CVA, Dehydration, Dysrhythmia, Electrolyte imbalance, Hypoglycemia, Hypotension, Hypovolemia, Myocardial infarction, Pulmonary embolus, TIA, Other (hypothyroidism) X-Ray, Labs, Meds, VS Vital Signs Date Time Temp Pulse Resp B/P (MAP) Pulse Ox O2 Delivery O2 Flow Rate FiO2 05/06/25 16:38 98 Room Air* 0 21 05/06/25 16:32 99 18 98 Room Air* 0 21 05/06/25 16:00 98.4 100 18 141/91 (108) 97 98.4 05/06/25 14:19 98.0 80 18 127/76 (93) 97 98.0 05/06/25 12:08 87 05/06/25 11:55 98.0 90 16 137/91 98 98.0 Lab Test 05/06/25 16:29 05/06/25 12:45 05/06/25 12:28 Range/Units POC Glucose 111 H 70-106 mg/dl White Blood Count 6.0 4.4-10.8 10^3/uL Red Blood Count 4.70 4.0-5.20 10^6/uL Hemoglobin 13.3 12.2-16.2 g/dL Hematocrit 39.9 36.0-46.0 % Mean Corpuscular Volume 84.7 80.0-100.0 fL Mean Corpuscular Hemoglobin 28.3 28.0-32.0 pg Mean Corpuscular Hemoglobin Concent 33.4 32.0-36.0 g/dL Red Cell Distribution Width 13.1 11.8-14.3 % Platelet Count 206 140-450 10^3/uL Mean Platelet Volume 9.0 6.9-10.8 fL Neutrophils (%) (Auto) 69.8 37.0-80.0 % Lymphocytes (%) (Auto) 21.5 10.0-50.0 % Monocytes (%) (Auto) 6.8 0.0-12.0 % Eosinophils (%) (Auto) 1.7 0.0-7.0 % Basophils (%) (Auto) 0.2 0.0-2.0 % Neutrophils # (Auto) 4.2 1.6-8.6 10 ^3/uL Lymphocytes # (Auto) 1.3 0.4-5.4 10 ^3/uL Monocytes # (Auto) 0.4 0-1.3 10 ^3/uL Eosinophils # (Auto) 0.1 0-0.8 10 ^3/uL Basophils # (Auto) 0 0-0.2 10 ^3/uL Nucleated Red Blood Cells 0.0 % Sodium Level 141 136-145 mmol/L Potassium Level 4.1 3.5-5.1 mmol/L Chloride Level 106 98-107 mmol/L Carbon Dioxide Level 26 20-31 mmol/L Anion Gap 9 5-15 Blood Urea Nitrogen 11 9-23 mg/dL Creatinine 0.42 L 0.550-1.02 mg/dL Glomerular Filtration Rate Calc 136 >90 mL/min BUN/Creatinine Ratio 26.2 H 10.0-20.0 Serum Glucose 93 74-106 mg/dL Calcium Level 8.9 8.7-10.4 mg/dL Total Bilirubin 0.5 0.2-1.0 mg/dL Aspartate Amino Transferase (AST) 20 13-40 U/L Alanine Aminotransferase (ALT) 17 7-40 U/L Alkaline Phosphatase 60 46-116 U/L Total Protein 7.7 5.7-8.2 g/dL Albumin 4.4 3.2-4.8 g/dL Thyroid Stimulating Hormone (TSH) 0.76 0.55-4.78 uIU/mL Urine Test Negative Negative Time of 1ST Reevaluation: 12:50 Reevaluation 1ST: Unchanged Patient Education/Counseling: Diagnosis, Treatment, Prognosis, Need For Follow Up Family Education/Counseling: No Family Present Comments This is a patient who reported syncope. Her cardiac workup is unremarkable. We have not capture any arrhythmias. However this arrhythmias remains a top differential. Patient will be admitted for continued monitoring of the cardia rhythm for evaluation of the cause of the syncope Departure 1 Departure Time of Disposition: 16:56 Impression: Primary Impression: Syncope Qualified Codes: R55 - Syncope and collapse Disposition: 09 ADMITTED INPATIENT Admit to: [facility] Condition: Serious Discharged With: Self Critical Care Note Critical Care Time?: Yes (55 min-critical care time only) Critical care comment: due to concerns for patient's condition deteriorating, the care required my highest level of attention and readiness to intervene. i assessed the patient's condition, ordered the proper tests and treatments, reassessed for response and reviewed the results. i communicated with medical personnel and formulated a plan of care. total critical care time does not include any procedures Stability Stability form required: No Heart Score Heart Score: Heart Score Response (Comments) Value History N/A 0 EKG N/A 0 Age N/A 0 Risk Factors N/A 0 Troponin N/A 0 Total 0 I personally scribed for MALATHI URBAN MD ([email or web address]) on 05/06/25 at 12:29. Electronically submitted by Louise Torres ([email or web address]). I personally scribed for MALATHI URBAN MD ([email or web address]) on 05/06/25 at 12:37. Electronically submitted by Louise Torres ([email or web address]). MALATHI URBAN MD May 06, 2025 12:29
[2025-05-06 13:11] LABS: Hematocrit 39.9 % (36.0-46.0); Hemoglobin 13.3 g/dL (12.2-16.2); Mean Corpuscular Hemoglobin 28.3 pg (28.0-32.0); Mean Corpuscular Volume 84.7 fL (80.0-100.0); Nucleated Red Blood Cells % 0.0 %
[2025-05-06 13:25] LABS: Alanine Aminotransferase 17 U/L (7-40); Albumin 4.4 g/dL (3.2-4.8); Alkaline Phosphatase 60 U/L (46-116); Anion Gap 9 (5-15); BUN/Creatinine Ratio 26.2 (10.0-20.0); Bilirubin, Total 0.5 mg/dL (0.2-1.0); Blood Urea Nitrogen 11 mg/dL (9-23); Calcium 8.9 mg/dL (8.7-10.4); Carbon Dioxide 26 mmol/L (20-31); Chloride 106 mmol/L (98-107); Potassium 4.1 mmol/L (3.5-5.1); Sodium 141 mmol/L (136-145); Total Protein 7.7 g/dL (5.7-8.2)
[2025-05-06 13:36] LABS: Glucose 93 mg/dL (74-106)
--- NOTE | 2025-05-06 14:39 | ECG ---
[facility] Test Date: 2025-05-06 Test Time: 12:08:25 Pat Name: MICHEL HOLLIDAY Department: ED Room: 0272T Gender: F Night Baker: DR KAMB: 1995 Requested By: MALATHI URBAN Order Number: [id number] Reading MD: Bradly Hussein Measurements Intervals [place] Rate: 87 P: 44 NH: 144 QRS: 93 QRSD: 88 T: 5 QT: 378 QTc: 455 Interpretive Statements Sinus rhythm Borderline right axis deviation Baseline wander in lead(s) V3 Electronically Signed On 05-10-2025 20:29:02 PDT by Bradly Hussein Please click the below link to view image of tracing.
[2025-05-06 16:32] VITALS: PULSE 99; RESP 18; O2SAT 98
[2025-05-06] MEDS ORDERED: ONDANSETRON HCL 4 MG/2 ML VIAL IV PRN (19:00)
[2025-05-06] MEDS ORDERED: NITROGLYCERIN 0.4 MG SL TAB SL PRN (19:00)
[2025-05-06] MEDS ORDERED: ACETAMINOPHEN 325 MG TAB PO PRN (19:00)
[2025-05-06] MEDS ORDERED: MORPHINE SULFATE INJ 2 MG/ml SYRG IV PRN (19:00)
[2025-05-06 19:50] VITALS: PULSE 86; RESP 20; O2SAT 98
--- NOTE | 2025-05-06 20:09 | DVHPNRES ---
Progress Note Date Seen: May 06, 2025 Resident Creating Document: BILLIE HERRON RESIDENT Has the PT tested + for MRSA If YES, has PT been informed?: No Medical Necessity Reason Pt with a Central, PICC or Fol: No Objective vital signs Vital Sign Date Time Temp Pulse Resp B/P (MAP) Pulse Ox O2 Delivery O2 Flow Rate FiO2 05/06/25 18:00 97 18 133/83 (100) 97 05/06/25 16:38 Room Air* 0 21 05/06/25 16:00 98.4 98.4 medications Current Medications Medications Dose Ordered Sig/Marty Route Start Time Stop Time Status Last Admin Dose Admin Ondansetron HCl 4 mg Q4HP PRN IV 05/06/25 19:00 Acetaminophen 650 mg Q6HP PRN PO 05/06/25 19:00 Nitroglycerin 0.4 mg Q5MINP PRN SL 05/06/25 19:00 Morphine Sulfate 2 mg Q30M PRN IV 05/06/25 19:00 laboratory and microbiology Laboratory Tests 05/06/25 12:45 Test 05/06/25 12:45 Range/Units Serum Glucose 93 74-106 mg/dL Problem List/Assessment/Plan Plan discussed with: Patient My Orders My Orders Orders - BILLIE HERRON RESIDENT Procedure Category Date Status Time Admit ADMIT 05/06/25 Transmitted 18:57 Code Status CODE 05/06/25 Transmitted 18:57 Ondansetron Hcl PHA 05/06/25 In Process (Zofran) 19:00 Complete Blood Count LAB 05/07/25 Verified 04:00 Comprehensive LAB 05/07/25 Verified Metabolic Panel 04:00 Echo 2d Mode Cardiac US 05/06/25 Logged DOP 18:57 Condition: Stable DENNIS 05/06/25 In Process 18:57 Acetaminophen Tablet PHA 05/06/25 In Process (Tylenol Tablet) 19:00 Sequential DENNIS 05/06/25 In Process Compression Device Nitroglycerin PHA 05/06/25 In Process Sublingual (Ntrostat 19:00 Morphine Sulfate PHA 05/06/25 In Process Injection 19:00 Oxygen By Nasal RT 05/06/25 Transmitted Cannula 18:57 Stat Ekg For Chest DENNIS 05/06/25 In Process Pain 18:57 Notify Of Changes DENNIS 05/06/25 In Process From Base 18:57 County Bailiff For DENNIS 05/06/25 In Process 24 Hours 18:57 Emergency Dysrhythmia DENNIS 05/06/25 In Process Protocol 18:57 Rhythm Strips Once DENNIS 05/06/25 In Process Every Shift 18:57 Electrocardigram EKG 05/06/25 Logged 18:57 Troponin-I Hs LAB 05/06/25 Logged 21:57 Electrocardigram EKG 05/06/25 Logged 19:57 Regular Diet DIET 05/06/25 Transmitted Dinner Urinalysis LAB 05/06/25 Verified 20:04 Drug Screen LAB 05/06/25 Verified 20:04 Chest Xray 1 View XY 05/06/25 Verified 20:04 Date of Service: May 06, 2025 Billing Provider: JAD SIGALA MD, RAGHAVA RAO RESIDENT May 06, 2025 20:09
--- NOTE | 2025-05-06 20:27 | DVHHPRES ---
History of Present Illness Resident Creating Document: BILLIE HERRON RESIDENT Reason for Visit: Near-syncope with chest fluttering and generalized weakness History of Present Illness 30-year-old female with a history of recently diagnosed thyroid disease (likely hyperthyroidism, untreated) and prior -induced hypertension, presenting after a near-syncopal episode associated with fluttering sensation in the chest while standing at work.?She describes a sudden fluttery feeling or expansion in the mid-chest followed by a sensation of pumping, associated with weakness, mild shortness of breath, and cold flashes. She did not lose consciousness completely. No fall, head trauma, tongue-bite, incontinence, or confusion afterward.?Symptoms resolved gradually; this is her first severe episode, though she notes intermittent milder flutters previously. Denies chest pain, nausea, vomiting, diarrhea, cough, fever, palpitations, limb weakness, or focal neurologic symptoms. She reports chronic imbalance and episodic migraines, more frequent recently.?No known cardiac history. Denies stimulant, alcohol, tobacco, or drug use. No medications except vitamin D. Her father has a heart murmur. 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 ED / Admission orders placed: * CXR, ECG, rhythm-strip telemetry, serial high-sensitivity troponins (0 & 3 h) * CBC, CMP, Mg, Phos, TSH, free T4, total T3, test (?-hCG) * 2-D echocardiogram * UA, urine drug screen * Regular diet, acetaminophen and ondansetron PRN * Admit to telemetry for monitoring and evaluation. 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 Cardiac Fluttering, mild dyspnea, weakness; no chest pain or edema. Pulmonary No cough or wheeze. Neuro Chronic imbalance, migraines; no focal deficit or seizure. GI No nausea/vomiting/diarrhea. Normal frequency, no dysuria; LMP 04/24/25. Endocrine Heat intolerance, fatigue, somnolence. Psych Stress, no suicidal ideation. Skin/MSK No rash, trauma, edema. Allergies: Coded Allergies: NO KNOWN ALLERGIES (Unverified , 09/28/20) Uncoded Allergies: [place] Seeds (Allergy, Severe, Throat closes and welts on face, 05/17/21) Medications Current Medications Medications Dose Ordered Sig/Marty Route Start Time Stop Time Status Last Admin Dose Admin Ondansetron HCl 4 mg Q4HP PRN IV 05/06/25 19:00 Acetaminophen 650 mg Q6HP PRN PO 05/06/25 19:00 Nitroglycerin 0.4 mg Q5MINP PRN SL 05/06/25 19:00 Morphine Sulfate 2 mg Q30M PRN IV 05/06/25 19:00 Exam Vital Signs Vital Signs Date Time Temp Pulse Resp B/P (MAP) Pulse Ox O2 Delivery O2 Flow Rate FiO2 05/06/25 18:00 97 18 133/83 (100) 97 05/06/25 16:38 Room Air* 0 21 05/06/25 16:00 98.4 98.4 Exam Vitals: BP 136/76, HR 96, RR 16, T 98.4 F, SpO 98 % RA General: Alert, oriented 3, no distress. HEENT: PERRLA, no icterus, mucosa moist, no tongue trauma. Neck: No JVD/bruit, thyroid not enlarged. Cardiac: Regular rate/rhythm, no murmurs/rubs/gallops, no edema. Lungs: Clear bilaterally. Abdomen: Soft, NT/ND, BS+. Extremities: No edema, pulses 2+. Neuro: CN IIXII intact, strength 5/5, no focal deficits, gait deferred. Skin: Warm, dry, no diaphoresis currently. Psych: Cooperative, mildly anxious. Labs/Xrays Labs Test 05/06/25 19:08 05/06/25 16:29 05/06/25 12:45 05/06/25 12:28 Range/Units Troponin I High Sensitivity < 3 L </=34 ng/L POC Glucose 111 H 70-106 mg/dl White Blood Count 6.0 4.4-10.8 10^3/uL Red Blood Count 4.70 4.0-5.20 10^6/uL Hemoglobin 13.3 12.2-16.2 g/dL Hematocrit 39.9 36.0-46.0 % Mean Corpuscular Volume 84.7 80.0-100.0 fL Mean Corpuscular Hemoglobin 28.3 28.0-32.0 pg Mean Corpuscular Hemoglobin Concent 33.4 32.0-36.0 g/dL Red Cell Distribution Width 13.1 11.8-14.3 % Platelet Count 206 140-450 10^3/uL Mean Platelet Volume 9.0 6.9-10.8 fL Neutrophils (%) (Auto) 69.8 37.0-80.0 % Lymphocytes (%) (Auto) 21.5 10.0-50.0 % Monocytes (%) (Auto) 6.8 0.0-12.0 % Eosinophils (%) (Auto) 1.7 0.0-7.0 % Basophils (%) (Auto) 0.2 0.0-2.0 % Neutrophils # (Auto) 4.2 1.6-8.6 10 ^3/uL Lymphocytes # (Auto) 1.3 0.4-5.4 10 ^3/uL Monocytes # (Auto) 0.4 0-1.3 10 ^3/uL Eosinophils # (Auto) 0.1 0-0.8 10 ^3/uL Basophils # (Auto) 0 0-0.2 10 ^3/uL Nucleated Red Blood Cells 0.0 % Sodium Level 141 136-145 mmol/L Potassium Level 4.1 3.5-5.1 mmol/L Chloride Level 106 98-107 mmol/L Carbon Dioxide Level 26 20-31 mmol/L Anion Gap 9 5-15 Blood Urea Nitrogen 11 9-23 mg/dL Creatinine 0.42 L 0.550-1.02 mg/dL Glomerular Filtration Rate Calc 136 >90 mL/min BUN/Creatinine Ratio 26.2 H 10.0-20.0 Serum Glucose 93 74-106 mg/dL Calcium Level 8.9 8.7-10.4 mg/dL Total Bilirubin 0.5 0.2-1.0 mg/dL Aspartate Amino Transferase (AST) 20 13-40 U/L Alanine Aminotransferase (ALT) 17 7-40 U/L Alkaline Phosphatase 60 46-116 U/L Total Protein 7.7 5.7-8.2 g/dL Albumin 4.4 3.2-4.8 g/dL Thyroid Stimulating Hormone (TSH) 0.76 0.55-4.78 uIU/mL Urine Test Negative Negative SEPSIS Sepsis Screen Date sepsis recognized/suspect: May 06, 2025 Time Sepsis recognized/suspect: 1636 Recent Procedure: No On Antibiotic Therapy: No Respiratory Rate >20: No Heart Rate >90: No Temp<36 C (96.8 F) or >38.3 C: No SBP <90 or MAP <65 mmHG: No New Acute Mental Status Change: No Is the patient on CPAP, BIPAP,: No Physician Orders Admit (05/06/25:57) Code Status (05/06/25 18:57) Ondansetron Hcl (Zofran) (05/06/25 19:00) Complete Blood Count (05/07/25 04:00) Comprehensive Metabolic Panel (05/07/25 04:00) Echo 2d Mode Cardiac Dop (05/06/25 18:57) Condition: Stable (05/06/25 18:57) Acetaminophen Tablet (Tylenol Tablet) (05/06/25 19:00) Sequential Compression Device (05/06/25 ) Nitroglycerin Sublingual (Ntrostat Subli (05/06/25 19:00) Morphine Sulfate Injection (05/06/25 19:00) Oxygen By Nasal Cannula (05/06/25:57) Stat Ekg For Chest Pain (05/06/25 18:57) Notify Of Changes From Base (05/06/25 18:57) Blockmason For 24 Hours (05/06/25 18:57) Emergency Dysrhythmia Protocol (05/06/25 18:57) Rhythm Strips Once Every Shift (05/06/25 18:57) Electrocardigram (05/06/25 18:57) Troponin-I Hs (05/06/25 21:57) Electrocardigram (05/06/25 19:57) Regular Diet (05/06/25 Dinner) Urinalysis (05/06/25 20:04) Drug Screen (05/06/25 20:04) Chest Xray 1 View (05/06/25 20:04) Vital Signs Date Time Temp Pulse Resp B/P (MAP) Pulse Ox O2 Delivery O2 Flow Rate FiO2 05/06/25 18:00 97 18 133/83 (100) 97 05/06/25 16:38 98 Room Air* 0 21 05/06/25 16:32 99 18 98 Room Air* 0 21 05/06/25 16:00 98.4 100 18 141/91 (108) 97 98.4 05/06/25 14:19 98.0 80 18 127/76 (93) 97 98.0 Laboratory Tests Test 05/06/25 12:45 White Blood Count 6.0 10^3/uL (4.4-10.8) Assessment/Plan Assessment/Plan Assessment 1. Presyncope secondary to suspected paroxysmal tachyarrhythmia vs thyrotoxicosis (POA Y)?Evidence: recurrent fluttering, near-syncope, HR 96, sinus rhythm with RAD.?Severity: acute, hemodynamically stable. 2. Possible hyperthyroidism /(POA Y)?Plan: thyroid panel, endocrine consult, 3. Orthostatic intolerance / POTS (POA Y)?Plan: orthostatic vitals, fluids, education. 4. Chronic imbalance / vestibular migraine (POA Y)?Plan: neuro evaluation if persists after cardiac causes excluded. 5. Remote -induced hypertension (POA Y) resolved; monitor BP. 6. Psychosocial stress / anxiety (POA Y) may exacerbate autonomic symptoms. Treatment Plan (system-shaw) Cardiovascular * Admit to Telemetry (Med/Surg) for continuous rhythm monitoring. * Serial hs-Troponin 0 & 3 hr, repeat ECGs for recurrence. * 2-D Echocardiogram for structural/valvular disease. * Electrolyte repletion to K ? 4.0, Mg ? 2.0. Endocrine / Thyroid * Labs: TSH, free T4, total T3, * Endocrinology consult if abnormal. * Defer antithyroid drug until labs return Autonomic / Orthostatic * Orthostatic vitals now and after hydration. * IV NS [id number] mL bolus if orthostatic changes present. * Encourage liberal fluids and salt; educate on counter-pressure maneuvers. Neurologic / Migraine * Fall precautions, bed alarm. * PRN acetaminophen 650 mg PO q6h. * If migraine severe ? Metoclopramide 10 mg + Diphenhydramine 25 mg IV. * Avoid triptans until cardiac evaluation complete. Pulmonary * Chest X-ray to exclude cardiomegaly/congestion. * PE work-up only if new pleuritic symptoms. General / Supportive * Regular diet. * Ondansetron 4 mg IV/PO q8h PRN N/V. * Daily CBC, CMP, Mg, Phos. Prophylaxis * VTE: SCDs; * GI: Not indicated unless stress steroids or NSAID started. * Falls: Bed alarm, assist with ambulation. * Infection: Standard precautions. Plan discussed with: Patient My Orders Orders - BILLIE HERRON RESIDENT Procedure Category Date Status Time Admit ADMIT 05/06/25 Transmitted 18:57 Code Status CODE 05/06/25 Transmitted 18:57 Ondansetron Hcl PHA 05/06/25 In Process (Zofran) 19:00 Complete Blood Count LAB 05/07/25 Verified 04:00 Comprehensive LAB 05/07/25 Verified Metabolic Panel 04:00 Echo 2d Mode Cardiac US 05/06/25 Logged DOP 18:57 Condition: Stable DENNIS 05/06/25 In Process 18:57 Acetaminophen Tablet PHA 05/06/25 In Process (Tylenol Tablet) 19:00 Sequential DENNIS 05/06/25 In Process Compression Device Nitroglycerin PHA 05/06/25 In Process Sublingual (Ntrostat 19:00 Morphine Sulfate PHA 05/06/25 In Process Injection 19:00 Oxygen By Nasal RT 05/06/25 Transmitted Cannula 18:57 Stat Ekg For Chest DENNIS 05/06/25 In Process Pain 18:57 Notify Of Changes DENNIS 05/06/25 In Process From Base 18:57 Blockmason For [facility] 05/06/25 In Process 24 Hours 18:57 Emergency Dysrhythmia [facility] 05/06/25 In Process Protocol 18:57 Rhythm Strips Once [facility] 05/06/25 In Process Every Shift 18:57 Electrocardigram EKG 05/06/25 Logged 18:57 Troponin-I Hs LAB 05/06/25 Logged 21:57 Electrocardigram EKG 05/06/25 Logged 19:57 Regular Diet DIET 05/06/25 Transmitted Dinner Urinalysis LAB 05/06/25 Logged 20:04 Drug Screen LAB 05/06/25 Logged 20:04 Chest Xray 1 View XY 05/06/25 Taken 20:04 Date of Service: May 06, 2025 Billing Provider: BILLIE HERRON RESIDENT Common Visit Codes: [id number] INP/OBS CARE (HIGH) BILLIE HERRON RESIDENT May 06, 2025 20:27 JAD SIGALA MD May 07, 2025 17:38
--- NOTE | 2025-05-06 20:37 | DVH ---
CLINICAL HISTORY: Evaluate for acute cardiopulmonary pathology TECHNIQUE: Single view of the chest was obtained. COMPARISON: None FINDINGS: The heart size and pulmonary vasculature are normal. The lungs are clear. IMPRESSION: NO ACUTE CARDIOPULMONARY PROCESS.
[2025-05-06 20:58] LABS: Free T3 3.08 pg/mL (2.3-4.2)
[2025-05-06 20:59] LABS: Free T4 (Free Thyroxine) 1.18 ng/dL (0.89-1.76)
[2025-05-06 21:59] VITALS: PULSE 67; RESP 16; O2SAT 98
[2025-05-07 06:21] LABS: Hematocrit 36.8 % (36.0-46.0); Hemoglobin 12.5 g/dL (12.2-16.2); Mean Corpuscular Hemoglobin 28.5 pg (28.0-32.0); Mean Corpuscular Volume 84.2 fL (80.0-100.0); Nucleated Red Blood Cells % 0.1 %
[2025-05-07 06:35] LABS: Alanine Aminotransferase 16 U/L (7-40); Albumin 3.9 g/dL (3.2-4.8); Alkaline Phosphatase 52 U/L (46-116); Anion Gap 9 (5-15); BUN/Creatinine Ratio 16.4 (10.0-20.0); Bilirubin, Total 0.6 mg/dL (0.2-1.0); Blood Urea Nitrogen 9 mg/dL (9-23); Carbon Dioxide 26 mmol/L (20-31); Glucose 94 mg/dL (74-106); Potassium 4.0 mmol/L (3.5-5.1); Sodium 144 mmol/L (136-145); Total Protein 7.0 g/dL (5.7-8.2)
[2025-05-07 06:37] LABS: Calcium 8.6 mg/dL (8.7-10.4); Chloride 109 mmol/L (98-107)
[2025-05-07 08:00] VITALS: PULSE 85; RESP 18; O2SAT 99
[2025-05-07 09:00] VITALS: BP 115/77; PULSE 85; RESP 18; TEMP 97.6; O2SAT 99
[2025-05-07 12:40] LABS: Urine Protein, UAD Negative (Negative)
[2025-05-07 13:00] VITALS: BP_SYST 129; BP_SYST 135; BP_SYST 136; BP_DIAS 77; BP_DIAS 87; BP_DIAS 88; PULSE 73; PULSE 80; PULSE 88; RESP 19; RESP 20; TEMP 97.6; O2SAT 98; O2SAT 99
[2025-05-07 13:43] LABS: Amphetamine Screen, Urine Neg (NEGATIVE); Barbiturate Scree,Urine Neg (NEGATIVE); Benzodiazephine Screen, Urine Neg (NEGATIVE); Cannabinoid Screen, Urine Neg (NEGATIVE); Cocaine Screen, Urine Neg (NEGATIVE); Opiate Scree,Urine Neg (NEGATIVE); Phencyclidine Screen, Urine Neg (NEGATIVE)
--- NOTE | 2025-05-07 14:05 | DVHPNRES ---
Progress Note Date Seen: May 07, 2025 Resident Creating Document: DURAN HESTER RESIDENT Has the PT tested + for MRSA If YES, has PT been informed?: No Medical Necessity Reason Pt with a Central, PICC or Fol: No Subjective Review of Systems 30-year-old female with a history of recently diagnosed thyroid disease (likely hyperthyroidism, untreated) and prior -induced hypertension, presenting after a near-syncopal episode associated with fluttering sensation in the chest while standing at work.?She describes a sudden fluttery feeling or expansion in the mid-chest followed by a sensation of pumping, associated with weakness, mild shortness of breath, and cold flashes. She did not lose consciousness completely. No fall, head trauma, tongue-bite, incontinence, or confusion afterward.?Symptoms resolved gradually; this is her first severe episode, though she notes intermittent milder flutters previously. Denies chest pain, nausea, vomiting, diarrhea, cough, fever, palpitations, limb weakness, or focal neurologic symptoms. She reports chronic imbalance and episodic migraines, more frequent recently.?No known cardiac history. Denies stimulant, alcohol, tobacco, or drug use. No medications except vitamin D. Her father has a heart murmur. 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 She reports that she does not have any fluttering sensation or chest pain today. Tropes were negative, we are waiting on echocardiogram readings. Objective vital signs Vital Sign Date Time Temp Pulse Resp B/P (MAP) Pulse Ox O2 Delivery O2 Flow Rate FiO2 05/07/25 09:00 97.6 85 18 115/77 (90) 99 97.6 05/07/25 08:00 Room Air* 0 21 Total Intake and Output 05/06/25 05/06/25 05/07/25 15:00 23:00 07:00 Intake Total 480 ml Balance 480 ml medications Current Medications Medications Dose Ordered Sig/Marty Route Start Time Stop Time Status Last Admin Dose Admin Ondansetron HCl 4 mg Q4HP PRN IV 05/06/25 19:00 Acetaminophen 650 mg Q6HP PRN PO 05/06/25 19:00 Nitroglycerin 0.4 mg Q5MINP PRN SL 05/06/25 19:00 Morphine Sulfate 2 mg Q30M PRN IV 05/06/25 19:00 Examination Pt is lying on bed General Appearance: Alert, Oriented X3, Cooperative, Not in acute distress HEENT: Atraumatic, Mucous membranes moist/pink Respiratory: Clear to auscultation, Normal air movement, No added sounds Cardiovascular: Regular rate, Normal S1, Normal S2, No murmurs Abdominal: Active bowel sounds, Soft, no distention, no tenderness Extremities: No edema, Normal pulses, No tenderness/swelling Skin: No Significant rash, except past surgical scars Neuro: Normal speech, sensorimotor deficits none Psych/Mental Status: Mental status NL, Mood NL Nurse was there as drafter construction during examination laboratory and microbiology Laboratory Tests 05/07/25 05:14 Test 05/07/25 05:14 Range/Units Serum Glucose 94 74-106 mg/dL Labs and/or images reviewed: Labs reviewed by me, Image(s) reviewed by me Problem List/Assessment/Plan Problem List/Assessment/Plan Assessment 1. Presyncope secondary to suspected paroxysmal tachyarrhythmia vs thyrotoxicosis (POA Y)?Evidence: recurrent fluttering, near-syncope, HR 96, sinus rhythm with RAD.?Severity: acute, hemodynamically stable. 2. Possible hyperthyroidism /(POA Y)?Plan: thyroid panel, endocrine consult, 3. Orthostatic intolerance / POTS (POA Y)?Plan: orthostatic vitals, fluids, education. 4. Chronic imbalance / vestibular migraine (POA Y)?Plan: neuro evaluation if persists after cardiac causes excluded. 5. Remote -induced hypertension (POA Y) resolved; monitor BP. 6. Psychosocial stress / anxiety (POA Y) may exacerbate autonomic symptoms. Treatment Plan (system-shaw) Cardiovascular * Admit to Telemetry (Med/Surg) for continuous rhythm monitoring. * Serial troponins- all 3 are negative * 2-D Echocardiogram for structural/valvular disease- * UA and UDS are negative Endocrine / Thyroid * Labs:TSH 0.76, free T4 1.18, total T3 2.18, * Endocrinology consult if abnormal. * Defer antithyroid drug until labs return Autonomic / Orthostatic * Orthostatic vitals now and after hydration. * IV NS [id number] mL bolus if orthostatic changes present. * Encourage liberal fluids and salt; educate on counter-pressure maneuvers. Neurologic / Migraine * Fall precautions, bed alarm. * PRN acetaminophen 650 mg PO q6h. * If migraine severe ? Metoclopramide 10 mg + Diphenhydramine 25 mg IV. * Avoid triptans until cardiac evaluation complete. Pulmonary * Chest X-ray shows no acute cardiopulmonary process General / Supportive * Regular diet. * Ondansetron 4 mg IV/PO q8h PRN N/V. * Daily CBC, CMP, Mg, Phos. Prophylaxis * VTE: SCDs; * GI: Not indicated unless stress steroids or NSAID started. * Falls: Bed alarm, assist with ambulation. * Infection: Standard precautions. Plan discussed with Dr. Sigala and Patient Plan discussed with: Patient Date of Service: May 07, 2025 Billing Provider: DURAN HESTER Common Visit Codes: [id number] INP/OBS CARE(HIGH) DURAN HESTER May 07, 2025 14:05 JAD SIGALA MD May 07, 2025 17:43
[2025-05-07 17:00] VITALS: BP 123/76; PULSE 82; RESP 20; TEMP 98; O2SAT 99
[2025-05-07 20:00] VITALS: PULSE 73; PULSE 90; RESP 17; O2SAT 100
[2025-05-07 21:00] VITALS: BP 120/78; PULSE 90; RESP 17; TEMP 98; O2SAT 100
[2025-05-08 01:00] VITALS: BP 122/72; PULSE 61; RESP 16; TEMP 97.4; O2SAT 100
[2025-05-08 05:00] VITALS: BP 137/68; PULSE 70; RESP 16; TEMP 97; O2SAT 99
[2025-05-08 08:00] VITALS: PULSE 66; RESP 18; O2SAT 98
[2025-05-08 09:00] VITALS: BP 113/71; PULSE 66; RESP 18; TEMP 98.4; O2SAT 98
--- NOTE | 2025-05-08 09:29 | ECG ---
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
[2025-05-08 10:29] LABS: Hematocrit 38.5 % (36.0-46.0); Hemoglobin 12.7 g/dL (12.2-16.2); Mean Corpuscular Hemoglobin 27.9 pg (28.0-32.0); Mean Corpuscular Volume 84.4 fL (80.0-100.0); Nucleated Red Blood Cells % 0.0 %
[2025-05-08 10:36] LABS: Potassium 4.1 mmol/L (3.5-5.1); Sodium 144 mmol/L (136-145)
[2025-05-08 10:37] LABS: Anion Gap 10 (5-15); Carbon Dioxide 26 mmol/L (20-31)
[2025-05-08 10:42] LABS: Glucose 91 mg/dL (74-106)
[2025-05-08 11:22] LABS: Calcium 8.6 mg/dL (8.7-10.4); Chloride 108 mmol/L (98-107)
[2025-05-08 12:15] LABS: BUN/Creatinine Ratio 21.7 (10.0-20.0); Blood Urea Nitrogen 13 mg/dL (9-23)
--- NOTE | 2025-05-08 12:18 | DVHDSRES ---
Discharge Summary Date of Admission Resident Creating Document: DURAN HESTER RESIDENT May 06, 2025 at 18:57 Date of Discharge: May 08, 2025 Admitting Diagnosis Presyncope Labs/Diagnostic Data: Laboratory Results Test 05/08/25 09:30 05/07/25 05:14 05/06/25 20:55 05/06/25 19:08 White Blood Count 6.6 10^3/uL (4.4-10.8) Red Blood Count 4.56 10^6/uL (4.0-5.20) Hemoglobin 12.7 g/dL (12.2-16.2) Hematocrit 38.5 % (36.0-46.0) Mean Corpuscular Volume 84.4 fL (80.0-100.0) Mean Corpuscular Hemoglobin 27.9 pg (28.0-32.0) Mean Corpuscular Hemoglobin Concent 33.0 g/dL (32.0-36.0) Red Cell Distribution Width 13.0 % (11.8-14.3) Platelet Count 202 10^3/uL (140-450) Mean Platelet Volume 8.7 fL (6.9-10.8) Neutrophils (%) (Auto) 58.8 % (37.0-80.0) Lymphocytes (%) (Auto) 30.9 % (10.0-50.0) Monocytes (%) (Auto) 8.0 % (0.0-12.0) Eosinophils (%) (Auto) 2.1 % (0.0-7.0) Basophils (%) (Auto) 0.2 % (0.0-2.0) Neutrophils # (Auto) 3.9 10 ^3/uL (1.6-8.6) Lymphocytes # (Auto) 2.0 10 ^3/uL (0.4-5.4) Monocytes # (Auto) 0.5 10 ^3/uL (0-1.3) Eosinophils # (Auto) 0.1 10 ^3/uL (0-0.8) Basophils # (Auto) 0 10 ^3/uL (0-0.2) Nucleated Red Blood Cells 0.0 % Sodium Level 144 mmol/L (136-145) Potassium Level 4.1 mmol/L (3.5-5.1) Chloride Level 108 mmol/L (98-107) Carbon Dioxide Level 26 mmol/L (20-31) Anion Gap 10 (5-15) Blood Urea Nitrogen 13 mg/dL (9-23) Creatinine 0.60 mg/dL (0.550-1.02) Glomerular Filtration Rate Calc 125 mL/min (>90) BUN/Creatinine Ratio 21.7 (10.0-20.0) Serum Glucose 91 mg/dL (74-106) Calcium Level 8.6 mg/dL (8.7-10.4) Hemoglobin A1c 5.2 % A1C (<5.7) Total Bilirubin 0.6 mg/dL (0.2-1.0) Aspartate Amino Transferase (AST) 17 U/L (13-40) Alanine Aminotransferase (ALT) 16 U/L (7-40) Alkaline Phosphatase 52 U/L (46-116) B-Type Natriuretic Peptide 5.53 pg/mL (0-100) Total Protein 7.0 g/dL (5.7-8.2) Albumin 3.9 g/dL (3.2-4.8) Troponin I High Sensitivity < 3 ng/L (</=34) Free Thyroxine (T4) Calculated 1.18 ng/dL (0.89-1.76) Free Triiodothyronine (T3) pg/mL 3.08 pg/mL (2.3-4.2) Total Triiodothyronine (TT3) 2.18 ng/mL (0.60-1.81) Test 05/06/25 16:29 05/06/25 12:45 05/06/25 12:28 05/06/25 09:48 POC Glucose 111 mg/dl (70-106) Thyroid Stimulating Hormone (TSH) 0.76 uIU/mL (0.55-4.78) Urine Test Negative (Negative) Urine Color Light-yellow (Yellow) Urine Clarity Clear (Clear) Urine pH 7.5 (5.0-9.0) Urine Specific [place] 1.022 (1.001-1.035) Urine Protein Negative (Negative) Urine Ketones Negative (Negative) Urine Blood Negative /uL (Negative) Urine Nitrite Negative (Negative) Urine Bilirubin Negative (Negative) Urine Urobilinogen Normal mg/dL (Negative) Urine Leukocyte Esterase Negative /uL (Negative) Urine RBC 2 /hpf (0 - 4) Urine Microscopic WBC 2 /HPF (0-5) Urine Squamous Epithelial Cells Few /hpf (<5) Urine Bacteria None seen /hpf (None Seen) Urine Mucus Few (None Seen) Urine Glucose Normal mg/dL (Normal) Urine Opiates Screen Neg (NEGATIVE) Urine Fentanyl Screen Neg (NEGATIVE) Urine Barbiturates Screen Neg (NEGATIVE) Urine Phencyclidine Screen Neg (NEGATIVE) Urine Amphetamines Screen Neg (NEGATIVE) Urine Benzodiazepines Screen Neg (NEGATIVE) Urine Cocaine Screen Neg (NEGATIVE) Urine Cannabinoids Screen Neg (NEGATIVE) Other Laboratory Tests 05/08/25 09:30 Brief Hx & Hospital Course: 30-year-old female with a history of recently diagnosed thyroid disease (likely hyperthyroidism, untreated) and prior -induced hypertension, presenting after a near-syncopal episode associated with fluttering sensation in the chest while standing at work.?She describes a sudden fluttery feeling or expansion in the mid-chest followed by a sensation of pumping, associated with weakness, mild shortness of breath, and cold flashes. She did not lose consciousness completely. No fall, head trauma, tongue-bite, incontinence, or confusion afterward.?Symptoms resolved gradually; this is her first severe episode, though she notes intermittent milder flutters previously. Denies chest pain, nausea, vomiting, diarrhea, cough, fever, palpitations, limb weakness, or focal neurologic symptoms. She reports chronic imbalance and episodic migraines, more frequent recently.?No known cardiac history. Denies stimulant, alcohol, tobacco, or drug use. No medications except vitamin D. Her father has a heart murmur. 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 An EKG was done which was normal. We checked her troponin levels which came back negative all 3 times. Nitroglycerin 0.4 mg to 5 minute PRN sublingually was kept for chest pain and morphine 2 mg Q 30 minute PRN IV was kept as well. We gave her acetaminophen 650 mg tablet per orally and Zofran 4 mg q.4 PRN for nausea. Chest x-ray showed no acute cardiopulmonary process. We also monitored her labs free T4 was 1.18, free T3 was 3.08 and total T3 was 2.18. Her LFT, K FT and CBC have been normal. We monitored the patient overnight and she has complained of no chest pain or difficulties anymore. An echocardiography was done which was normal pending official reports. We will monitored on telemetry. patient is now stable and can be discharged. She is to follow up with Cardiology for the need for Holter and she will be following up with who has also been seeing her throughout the hospitalization in the discharge clinic on 05/16/2020 5:00 a.m. clinic. Patient has communicated understanding and agreed to the discharge plan. General Appearance: Alert, Oriented X3, Cooperative, Not in acute distress HEENT: Atraumatic, Mucous membranes moist/pink Respiratory: Clear to auscultation, Normal air movement, No added sounds Cardiovascular: Regular rate, Normal S1, Normal S2, No murmurs Abdominal: Active bowel sounds, Soft, no distention, no tenderness Extremities: No edema, Normal pulses, No tenderness/swelling Skin: No Significant rash, except past surgical scars Neuro: Normal speech, sensorimotor deficits none Psych/Mental Status: Mental status NL, Mood NL Nurse was there as stock control clerk during examination Operations or Procedures ORDERING PHYSICIAN: BILLIE HERRON RESIDENT PROCEDURE(s): CXR1 - CHEST XRAY 1 VIEW REASON: Evaluate for acute cardiopulmonary pathology ORDER NUMBER(s): [id number], ACCESSION NUMBER(s): [id number] CLINICAL HISTORY: Evaluate for acute cardiopulmonary pathology TECHNIQUE: Single view of the chest was obtained. COMPARISON: None FINDINGS: The heart size and pulmonary vasculature are normal. The lungs are clear. IMPRESSION: NO ACUTE CARDIOPULMONARY PROCESS. Condition at Discharge: Stable Final Diagnosis/Problems List 1. Presyncope secondary to paroxysmal tachyarrhythmia, ruled out thyrotoxicosis, pt will require holter monitor outpatient 2. ruled out hyperthyroidism, 3. ruled out Orthostatic intolerance / ruled out POTS 4. ruled out Chronic imbalance / vestibular migraine 5. history of Remote -induced hypertension 6. Psychosocial stress / anxiety Discharge Disposition: Home Discharge Instruct/Medications Diet: Consistent carbohydrate, Cardiac 2g Na,low cholest Activity: No Restrictions, As Tolerated Follow Up/Referral: Follow up at discharge clinic on 05/16/2025 with in the morning clinic Follow up with pony edger for the need of Holter study Medications: Resume all home medications No Active Prescriptions or Reported Meds Discharge Statement: "Patient was advised to return to the ER or call 911 if any headaches, dizziness, shortness of breath, chest pain, abdominal pain, bleeding, fevers, or worsening of medical condition. Patient was counseled about treatment plan, medications, possible side effects, patientverbalized understanding. All questions were answered to the best of my ability. This discharge took greater then 30 minutes in planning, reviewing documentation, counseling the patient, and discussing with other team members." ASSESSMENT ASSESSMENT Assessment Presyncope secondary to paroxysmal tachyarrhythmia, ruled out thyrotoxicosis, pt will require holter monitor outpatient Date of Service: May 08, 2025 Billing Provider: JAD SIGALA MD Common Visit Codes: 75461-PWB/OBS DISCH DAY >30min DURAN HESTER RESIDENT May 08, 2025 12:18 JAD SIGALA MD May 08, 2025 20:01
[2025-05-08 13:00] VITALS: BP 116/68; PULSE 78; RESP 20; TEMP 97.8; O2SAT 98
[2025-05-08 13:37] VITALS: BP 113/71; PULSE 66; RESP 18; TEMP 98.4; O2SAT 98
--- NOTE | 2025-05-12 18:07 | DVHSR ---
APPROVED REPORT EXAM: Two-dimensional and M-mode echocardiogram with Doppler and color Doppler. Blood Pressure: 107/58 mmHg INDICATION Evaluate for heart disease RISK FACTORS Height: 5'5", Weight: 179 DIMENSIONS LVDd5.4 (3.8-5.7cm)LA (2D)3.5 (1.9-4.0cm)Aortic Root2.7 (2.0-3.7cm) LVDs4.0 (2.5-4.0cm)LA (MM) (1.9-4.0cm)Aortic Cusp Exc1.8 (1.5-2.0cm) EF (%) 50.0 (55-70%)Rt. Atrium3.4 (1.9-4.0cm)Asc. Aorta2.7 cm IVSd0.6 (0.7-1.1cm)RV (D)2.6 (1.8-2.4cm) PWd0.6 (0.7-1.1cm) Mitral Valve MitralMitral Stenosis E wave0.78m/sMV Mean GR.mmHg A wave0.45m/sMV Peak GR.mmHg E/A ratio1.72D MVAcm2 DECEL [id number] 1/2 [place] Aortic Valve Aortic ValveAortic Stenosis V11.05m/Josue Mean GR.3mmHg V21.22m/Josue Peak GR.6mmHg LVOT Diameter2.1 (1.8-2.4cm)Doppler AVA2.98cm2 Pulmonic Valve V20.74m/s Conclusion Technically good study. Sinus rhythm. Mild LV enlargement. Normal chamber sizes otherwise noted. Valves are normal. EF of 50% with normal RV function No pericardial effusion masses or vegetations. Dopplers unremarkable.
--- NOTE | 2025-05-18 20:36 | DVHPN2 ---
Date of Service: May 06, 2025 Billing Provider: JAD SIGALA MD Common Visit Codes: [id number] INP/OBS CARE(HIGH) JAD SIGALA MD May 18, 2025 20:36
--- NOTE | 2025-05-18 20:37 | DVHPN2 ---
Date of Service: May 07, 2025 Billing Provider: JAD SIGALA MD Common Visit Codes: [id number] INP/OBS CARE(HIGH) JAD SIGALA MD May 18, 2025 20:37
== END 2025-05-08 14:13 | disposition home or self-care (01) | DRG 201 ==
LOC: ER 11:52 → OVERFLOW 18:57 → TELE-WESTW 21:25
PROVIDERS: ADMIT Student in an Organized Health Care Education/Training Program; ATTEND Student in an Organized Health Care Education/Training Program
DX: I47.9 Paroxysmal tachycardia, unspecified (principal); F41.9 Anxiety disorder, unspecified; Z82.49 Family history of ischemic heart disease and other diseases of the circulatory system; Z79.899 Other long term (current) drug therapy
CPT/HCPCS: 36415; 71045; 80048; 80053; 80307; 81001; 81025; 82962; 83036; 83880; 84439; 84443; 84480; 84481; 84484; 85025; 93005; 93306; 99291; G0378